=== PATIENT | male | born 1960 | race Caucasian/White ===

== ENCOUNTER → 2017-12-27 10:58 | Outpatient (CLI) | payer MEDICAID, SELFPAY ==
[2017-12-30 16:03] LABS: Amphetamine/Metha Screen,Urine Negative ng/mL (<1000); Barbiturates Screen,Urine Negative ng/mL (<200); Benzodiazepines Screen,Urine Negative ng/mL (200); Cannabinoid Screen,Urine Positive ng/mL (<50); Cocaine Screen,Urine Negative ng/g (<300); Methadone Screen,Urine Negative ng/mL (<300); Opiate Screen,Urine Negative ng/mL (<300); Phencyclidine Screen,Urine Negative ng/mL (<25)
== END ==
PROVIDERS: Visit Provider Emergency Medicine
DX: M54.9 Dorsalgia, unspecified (principal); Z79.899 Other long term (current) drug therapy
CPT/HCPCS: 80305

== ENCOUNTER → 2017-12-30 11:16 | Outpatient (REF) | payer MEDICAID, SELFPAY | LOC: LAB 11:16 | PROVIDERS: Visit Provider Emergency Medicine ==

== ENCOUNTER → 2018-02-21 10:20 | Outpatient (REF) | payer MEDICAID, SELFPAY ==
[2018-02-21 14:08] LABS: Basophils # 0.1 K/mm3 (0-0.2); Basophils % 0.6 % (0.1-2.0); Eosinophils # 0.5 K/mm3 (0.0-0.4); Eosinophils % 4.6 % (0.1-12.0); Hematocrit 46.6 % (42.0-52.0); Hemoglobin 15.2 g/dL (14.1-18.0); Lymphocytes # 2.9 K/mm3 (0.7-4.5); Lymphocytes % 27.9 K/mm3 (10-50); Mean Corpuscular HGB Conc 32.7 g/dL (31.8-35.4); Mean Corpuscular Hemoglobin 29.5 pg (27.0-31.2); Mean Corpuscular Volume 90.4 fl (80-94); Mean Platelet Volume 8.5 fl (7.4-10.4); Monocytes # 0.4 K/mm3 (0.1-1.0); Monocytes % 4.1 % (1.7-9.3); Neutrophils # 6.6 K/mm3 (1.8-7.8); Neutrophils % 62.8 % (37.0-80.0); Platelet Count 322 K/mm3 (142-424); Red Blood Count 5.16 M/mm3 (4.60-6.20); Red Cell Distribution Width 13.4 % (11.5-17.5); White Blood Count 10.5 K/mm3 (4.8-10.8)
[2018-02-21 14:32] LABS: Amphetamine/Metha Screen,Urine Negative ng/mL (<1000); Barbiturates Screen,Urine Negative ng/mL (<200); Benzodiazepines Screen,Urine Negative ng/mL (200); Cannabinoid Screen,Urine Positive ng/mL (<50); Cocaine Screen,Urine Negative ng/g (<300); Methadone Screen,Urine Negative ng/mL (<300); Opiate Screen,Urine Positive ng/mL (<300); Phencyclidine Screen,Urine Negative ng/mL (<25)
[2018-02-21 15:04] LABS: Alanine Aminotransferase 54 U/L (12-78); Albumin Level 4.2 gm/dL (3.4-5.0); Albumin/Globulin Ratio 1.2 (1.1-1.8); Alkaline Phosphatase 140 U/L (46-116); Anion Gap 16.3 mEq/L (5-15); Aspartate Amino Transferase 29 U/L (15-37); Bilirubin,Total 0.2 mg/dL (0.2-1.0); Blood Urea Nitrogen 15 mg/dL (7-18); Calcium 9.6 mg/dL (8.5-10.1); Carbon Dioxide 26 mmol/L (21.0-32.0); Chloride 100 mmol/L (98-107); Cholesterol 152 mg/dL (140-200); Creatinine,Serum 0.98 mg/dL (0.70-1.30); Estimated Glomerular Filt Rate 79 ml/min (>60); GFR (African American) 96 ML/MIN (>60); Globulin 3.4 gm/dl (1.3-3.2); Glucose 178 mg/dL (74-106); HDL Cholesterol 38 mg/dL (27-67); LDL Cholesterol 75 mg/dL (0-130); Potassium 4.3 mmoL/L (3.5-5.1); Sodium 138 mmol/L (136-145); T4 (Thyroxine) 7.4 ug/dl (4.7-13.3); Thyroid Stimulating Hormone 0.87 uIU/ml (0.358-3.740); Total Protein,Serum 7.6 gm/dL (6.4-8.2); Triglycerides 197 mg/dL (30-200); VLDL Cholesterol 39 mg/dL (0-40)
[2018-02-23 18:49] LABS: PSA, Free 0.32 ng/mL; Prostate Specific Ag 0.9 ng/mL (0.0-4.0); Vitamin D 25 Hydroxy 31.6 ng/mL (30.0-100.0)
== END ==
LOC: LAB 10:20
PROVIDERS: Visit Provider Emergency Medicine
DX: E78.5 Hyperlipidemia, unspecified (principal); I10 Essential (primary) hypertension; Z79.899 Other long term (current) drug therapy
CPT/HCPCS: 80053; 80061; 80305; 82652; 84153; 84154; 84436; 84443; 85025

== ENCOUNTER → 2018-02-24 13:28 | Outpatient (CLI) | payer MEDICAID, SELFPAY | PROVIDERS: Visit Provider Emergency Medicine | DX: R73.09 Other abnormal glucose (principal) ==

== ENCOUNTER → 2018-02-25 10:37 | Outpatient (REF) | payer MEDICAID, SELFPAY ==
[2018-02-25 15:21] LABS: Hemoglobin A1C 5.9 % (0.0-7.0)
== END ==
LOC: LAB 10:37
PROVIDERS: Visit Provider Emergency Medicine
DX: R73.09 Other abnormal glucose (principal)
CPT/HCPCS: 83036

== ENCOUNTER → 2018-05-16 10:20 | Outpatient (REF) | payer MEDICAID, SELFPAY ==
[2018-05-16 14:23] LABS: Amphetamine/Metha Screen,Urine Negative ng/mL (<1000); Barbiturates Screen,Urine Negative ng/mL (<200); Benzodiazepines Screen,Urine Negative ng/mL (<200); Cannabinoid Screen,Urine Positive ng/mL (<50); Cocaine Screen,Urine Negative ng/mL (<300); Methadone Screen,Urine Negative ng/mL (<300); Opiate Screen,Urine Positive ng/mL (<300); Phencyclidine Screen,Urine Negative ng/mL (<25)
== END ==
LOC: LAB 10:20
PROVIDERS: Visit Provider Emergency Medicine
DX: Z79.899 Other long term (current) drug therapy (principal)
CPT/HCPCS: 80305

== ENCOUNTER → 2018-06-13 10:04 | Outpatient (REF) | payer MEDICAID, SELFPAY ==
[2018-06-13 14:05] LABS: Amphetamine/Metha Screen,Urine Negative ng/mL (<1000); Barbiturates Screen,Urine Negative ng/mL (<200); Benzodiazepines Screen,Urine Negative ng/mL (<200); Cannabinoid Screen,Urine Positive ng/mL (<50); Cocaine Screen,Urine Negative ng/mL (<300); Methadone Screen,Urine Negative ng/mL (<300); Opiate Screen,Urine Positive ng/mL (<300); Phencyclidine Screen,Urine Negative ng/mL (<25)
== END ==
LOC: LAB 10:04
PROVIDERS: Visit Provider Emergency Medicine
DX: M54.5 Low back pain (principal)
CPT/HCPCS: 80305

== ENCOUNTER → 2018-07-11 08:12 | Outpatient (REF) | payer MEDICAID, SELFPAY ==
[2018-07-11 18:53] LABS: Amphetamine/Metha Screen,Urine Negative ng/mL (<1000); Barbiturates Screen,Urine Negative ng/mL (<200); Benzodiazepines Screen,Urine Negative ng/mL (<200); Cannabinoid Screen,Urine Positive ng/mL (<50); Cocaine Screen,Urine Negative ng/mL (<300); Methadone Screen,Urine Negative ng/mL (<300); Opiate Screen,Urine Positive ng/mL (<300); Phencyclidine Screen,Urine Negative ng/mL (<25)
== END ==
LOC: LAB 08:12
PROVIDERS: Visit Provider Emergency Medicine
DX: Z79.899 Other long term (current) drug therapy (principal)
CPT/HCPCS: 80305

== ENCOUNTER → 2018-08-08 09:24 | Outpatient (REF) | payer MEDICAID, SELFPAY ==
[2018-08-08 18:32] LABS: Amphetamine/Metha Screen,Urine Negative ng/mL (<1000); Barbiturates Screen,Urine Negative ng/mL (<200); Benzodiazepines Screen,Urine Negative ng/mL (<200); Cannabinoid Screen,Urine Positive ng/mL (<50); Cocaine Screen,Urine Negative ng/mL (<300); Methadone Screen,Urine Negative ng/mL (<300); Opiate Screen,Urine Positive ng/mL (<300); Phencyclidine Screen,Urine Negative ng/mL (<25)
== END ==
LOC: LAB 09:24
PROVIDERS: Visit Provider Emergency Medicine
DX: Z79.899 Other long term (current) drug therapy (principal)
CPT/HCPCS: 80305

== ENCOUNTER → 2018-09-08 14:00 | Outpatient (CLI) | payer MEDICAID, SELFPAY ==
[2018-09-08 15:10] LABS: Amphetamine/Metha Screen,Urine Negative ng/mL (<1000); Barbiturates Screen,Urine Negative ng/mL (<200); Benzodiazepines Screen,Urine Negative ng/mL (<200); Cannabinoid Screen,Urine Positive ng/mL (<50); Cocaine Screen,Urine Negative ng/mL (<300); Methadone Screen,Urine Negative ng/mL (<300); Opiate Screen,Urine Positive ng/mL (<300); Phencyclidine Screen,Urine Negative ng/mL (<25)
== END ==
PROVIDERS: PCP Emergency Medicine; Visit Provider Emergency Medicine
DX: Z79.899 Other long term (current) drug therapy (principal)
CPT/HCPCS: 80305

== ENCOUNTER → 2018-10-07 13:25 | Outpatient (CLI) | payer MEDICAID, SELFPAY ==
[2018-10-07 14:31] LABS: Amphetamine/Metha Screen,Urine Negative ng/mL (<1000); Barbiturates Screen,Urine Negative ng/mL (<200); Benzodiazepines Screen,Urine Negative ng/mL (<200); Cannabinoid Screen,Urine Positive ng/mL (<50); Cocaine Screen,Urine Negative ng/mL (<300); Methadone Screen,Urine Negative ng/mL (<300); Opiate Screen,Urine Positive ng/mL (<300); Phencyclidine Screen,Urine Negative ng/mL (<25)
== END ==
PROVIDERS: Visit Provider Emergency Medicine
DX: Z79.899 Other long term (current) drug therapy (principal)
CPT/HCPCS: 80305

== ENCOUNTER → 2018-11-07 14:22 | Outpatient (CLI) | payer MEDICAID, SELFPAY ==
[2018-11-07 15:02] LABS: Amphetamine/Metha Screen,Urine Negative ng/mL (<1000); Barbiturates Screen,Urine Negative ng/mL (<200); Benzodiazepines Screen,Urine Negative ng/mL (<200); Cannabinoid Screen,Urine Positive ng/mL (<50); Cocaine Screen,Urine Negative ng/mL (<300); Methadone Screen,Urine Negative ng/mL (<300); Opiate Screen,Urine Positive ng/mL (<300); Phencyclidine Screen,Urine Negative ng/mL (<25)
== END ==
PROVIDERS: Visit Provider Emergency Medicine
DX: Z79.899 Other long term (current) drug therapy (principal)
CPT/HCPCS: 80305

== ENCOUNTER → 2019-01-02 16:14 | Outpatient (CLI) | payer MEDICAID, SELFPAY ==
[2019-01-02 17:57] LABS: Amphetamine/Metha Screen,Urine Negative ng/mL (<1000); Barbiturates Screen,Urine Negative ng/mL (<200); Benzodiazepines Screen,Urine Negative ng/mL (<200); Cannabinoid Screen,Urine Positive ng/mL (<50); Cocaine Screen,Urine Negative ng/mL (<300); Methadone Screen,Urine Negative ng/mL (<300); Opiate Screen,Urine Positive ng/mL (<300); Phencyclidine Screen,Urine Negative ng/mL (<25)
== END ==
PROVIDERS: Visit Provider Emergency Medicine
DX: Z79.899 Other long term (current) drug therapy (principal)
CPT/HCPCS: 80305

== ENCOUNTER → 2019-03-02 14:11 | Outpatient (CLI) | payer MEDICAID, SELFPAY ==
[2019-03-02 15:52] LABS: Amphetamine/Metha Screen,Urine Negative ng/mL (<1000); Barbiturates Screen,Urine Negative ng/mL (<200); Benzodiazepines Screen,Urine Negative ng/mL (<200); Cannabinoid Screen,Urine Positive ng/mL (<50); Cocaine Screen,Urine Negative ng/mL (<300); Methadone Screen,Urine Negative ng/mL (<300); Opiate Screen,Urine Positive ng/mL (<300); Phencyclidine Screen,Urine Negative ng/mL (<25)
== END ==
PROVIDERS: Visit Provider Emergency Medicine
DX: Z79.899 Other long term (current) drug therapy (principal)
CPT/HCPCS: 80305

== ENCOUNTER → 2019-04-29 13:43 | Outpatient (CLI) | payer MEDICAID, SELFPAY ==
[2019-04-29 14:53] LABS: Amphetamine/Metha Screen,Urine Negative ng/mL (<1000); Barbiturates Screen,Urine Negative ng/mL (<200); Benzodiazepines Screen,Urine Negative ng/mL (<200); Cannabinoid Screen,Urine Positive ng/mL (<50); Cocaine Screen,Urine Negative ng/mL (<300); Methadone Screen,Urine Negative ng/mL (<300); Opiate Screen,Urine Positive ng/mL (<300); Phencyclidine Screen,Urine Negative ng/mL (<25)
== END ==
PROVIDERS: Visit Provider Emergency Medicine
DX: Z79.899 Other long term (current) drug therapy (principal)
CPT/HCPCS: 80305

== ENCOUNTER → 2019-06-24 13:59 | Outpatient (CLI) | payer MEDICAID, SELFPAY ==
[2019-06-24 16:49] LABS: Amphetamine/Metha Screen,Urine Negative ng/mL (<1000); Barbiturates Screen,Urine Negative ng/mL (<200); Benzodiazepines Screen,Urine Negative ng/mL (<200); Cannabinoid Screen,Urine Negative ng/mL (<50); Cocaine Screen,Urine Negative ng/mL (<300); Methadone Screen,Urine Negative ng/mL (<300); Opiate Screen,Urine Positive ng/mL (<300); Phencyclidine Screen,Urine Negative ng/mL (<25)
== END ==
PROVIDERS: Visit Provider Emergency Medicine
DX: Z79.891 Long term (current) use of opiate analgesic (principal)
CPT/HCPCS: 80305

== ENCOUNTER → 2019-08-21 13:27 | Outpatient (CLI) | payer MEDICAID, SELFPAY ==
[2019-08-21 15:10] LABS: Amphetamine/Metha Screen,Urine Negative ng/mL (<1000); Barbiturates Screen,Urine Negative ng/mL (<200); Benzodiazepines Screen,Urine Positive ng/mL (<200); Cannabinoid Screen,Urine Positive ng/mL (<50); Cocaine Screen,Urine Negative ng/mL (<300); Methadone Screen,Urine Negative ng/mL (<300); Opiate Screen,Urine Positive ng/mL (<300); Phencyclidine Screen,Urine Negative ng/mL (<25)
[2019-08-29 04:07] LABS: Alprazolam Negative (Cutoff=100); Benzodiazepines Negative ng/mL (Cutoff=100); Clonazepam Negative (Cutoff=100); Flurazepam Negative (Cutoff=100); Lorazepam Negative (Cutoff=100); Midazolam Negative (Cutoff=100); Temazepam Negative (Cutoff=100); Triazolam Negative (Cutoff=100)
== END ==
PROVIDERS: Visit Provider Emergency Medicine
DX: Z79.899 Other long term (current) drug therapy (principal)
CPT/HCPCS: 80305; 80346

== ENCOUNTER → 2019-10-19 14:31 | Outpatient (CLI) | payer MEDICAID, SELFPAY ==
[2019-10-19 16:22] LABS: Amphetamine/Metha Screen,Urine Negative ng/mL (<1000); Barbiturates Screen,Urine Negative ng/mL (<200); Benzodiazepines Screen,Urine Negative ng/mL (<200); Cannabinoid Screen,Urine Positive ng/mL (<50); Cocaine Screen,Urine Negative ng/mL (<300); Methadone Screen,Urine Negative ng/mL (<300); Opiate Screen,Urine Positive ng/mL (<300); Phencyclidine Screen,Urine Negative ng/mL (<25)
== END ==
PROVIDERS: Visit Provider Emergency Medicine
DX: M54.9 Dorsalgia, unspecified (principal)
CPT/HCPCS: 80305

== ENCOUNTER 2021-10-28 05:40 | Emergency (ER) | payer MEDICAID, SELFPAY ==
[2021-10-28] VITALS (8 sets, daily range): BP systolic 116–162; BP diastolic 60–100; PULSE 74–101; RESP 16–18; TEMP 36.6–36.8; O2SAT 94–99; BMI 35.4
--- NOTE | 2021-10-28 05:45 | CT_ITS ---
PROCEDURE INFORMATION: Exam: CT Abdomen With Contrast Exam date and time: 10/28/2021 5:45 AM Age: 61 years old Clinical indication: Patient HX: C/O low abdominal pain; Additional info: Abd pain TECHNIQUE: Imaging protocol: Computed tomography images of the abdomen with intravenous contrast. Radiation optimization: All CT scans at this facility use at least one of these dose optimization techniques: automated exposure control; mA and/or kV adjustment per patient size (includes targeted exams where dose is matched to clinical indication); or iterative reconstruction. Contrast material: ISOVUE; Contrast volume: 75 ml; Contrast route: IV; COMPARISON: ABDPELW/O CT ABD PELVIS W/O CONTRAST 03/21/2015 9:29 PM FINDINGS: Liver: There is fatty infiltration of the liver. Gallbladder and bile ducts: The gallbladder is normal appearance, without evidence of gallbladder wall thickening or pericholecystic fluid. Pancreas: The pancreas is normal in appearance, without evidence of mass, cyst, peripancreatic inflammatory change, or pancreatic duct dilatation. Spleen: The spleen is normal in appearance. Adrenals: There is a fatty mass in the right adrenal gland measuring approximately 2.2 cm image 29 series 8. Kidneys and ureters: Normal. No hydronephrosis. Stomach and bowel: The stomach is normal in appearance, without evidence of mass or wall thickening. The small bowel is normal in appearance, without evidence of wall thickening, perienteric inflammatory change, or small bowel obstruction. The terminal ileum and cecum are within normal limits. There are multiple diverticuli in the distal descending colon and in the sigmoid colon. Intraperitoneal space: Unremarkable. No free air. No significant fluid collection. Lymph nodes: Unremarkable. No enlarged lymph nodes. Vasculature: Unremarkable. No abdominal aortic aneurysm. Bladder: The urinary bladder is nondistended. Matias catheter is in place. Bones/joints: Unremarkable. No acute fracture. No dislocation. Soft tissues: Unremarkable. IMPRESSION: 1. Hepatic steatosis. 2. Probable right adrenal adenoma measuring 2.2 cm. 3. Diverticulosis, without evidence of acute diverticulitis.
[2021-10-28 06:18] LABS: Microscopic, Urine URINE MICROSCOPIC (MICROSCOPIC)
[2021-10-28 06:20] LABS: Appearance,Urine CLEAR (Clear); Basophils # 0.2 K/mm3 (0-0.2); Basophils % 1.2 % (0.1-2.0); Bilirubin,Urine Negative (Negative); Blood, Urine TRACE-L (Negative); Color,Urine YELLOW (Yellow); Eosinophils # 0.2 K/mm3 (0.0-0.4); Eosinophils % 1.2 % (0.1-12.0); Glucose,Urine (UA) Negative (Negative); Hematocrit 48.2 % (42.0-52.0); Hemoglobin 15.6 g/dL (14.1-18.0); Ketones,Urine Negative (Negative); Leukocyte Esterase,Urine Negative (Negative); Lymphocytes # 3.3 K/mm3 (0.7-4.5); Lymphocytes % 23.9 % (10-50); Mean Corpuscular HGB Conc 32.3 g/dL (31.8-35.4); Mean Corpuscular Hemoglobin 29.2 pg (27.0-31.2); Mean Corpuscular Volume 90.4 fl (80-94); Mean Platelet Volume 8.5 fl (7.4-10.4); Monocytes # 0.5 K/mm3 (0.1-1.0); Monocytes % 3.8 % (1.7-9.3); Neutrophils # 9.5 K/mm3 (1.8-7.8); Neutrophils % 69.8 % (37.0-80.0); Nitrate,Urine Negative (Negative); Platelet Count 391 K/mm3 (142-424); Protein,Urine 1+ (Negative); Red Blood Count 5.34 M/mm3 (4.60-6.20); Red Cell Distribution Width 13.9 % (11.5-17.5); Urobilinogen,Urine 0.2 EU/dl (0.2); White Blood Count 13.6 K/mm3 (4.8-10.8)
[2021-10-28 06:27] LABS: Chloride 99 mmol/L (98-107); Potassium 3.7 mmoL/L (3.5-5.1); Sodium 138 mmol/L (136-145)
--- NOTE | 2021-10-28 06:28 | HMH.EDNVD ---
ED Disposition Condition on Discharge: Good - Critical Care Critical Care Time: No <DeanaCorbin Rodriguez - Last Filed: 10/28/21 08:07> Condition on Discharge: Good <RolaRoosevelt - Last Filed: 10/28/21 08:32> Clinical Impression: Acute urinary retention Disposition: Home, Self-Care Instructions: DI for Urinary Retention in Men Additional Instructions: Magnesium citrate followed by [facility] for 5 days. Follow-up with Dr. Pollack, urology, call Saturday to make appointment. Return to the emergency department if unable to urinate. Prescriptions: polyethylene glycoL 3350 [Miralax 17gm Packet] 17 gm PO DAILY #5 packet Transmission Status: Pending to [facility] Referrals: Provider,MD Maurice [Primary Care Provider] - Gerardo Pollack MD [Staff Physician] - Attestation: On 10/28/21, the high probability of a clinically significant, sudden or life threatening deterioration of the following system(s) required my full and direct attention, intervention and personal management. The time I documented below is in addition to time spent performing reported procedures but includes the following listed in this critical care notation. Medical Decision Making - Medical Records Medical records reviewed: Yes: I reviewed the patient's medical records. - Minor Inquiry Pt receiving controlled substance: No - Lab Data Lab results reviewed: Yes: I reviewed the patient's lab results. Result diagrams: 10/28/21 05:55 10/28/21 05:55 <Corbin Leblanc - Last Filed: 10/28/21 08:07> - Lab Data Result diagrams: 10/28/21 05:55 10/28/21 05:55 - CT Data CT Scan: Abdomen, Pelvis Time Received: 08:[address] Reviewed: Yes: I have viewed the radiologist's interpretation <RolaRoosevelt - Last Filed: 10/28/21 08:32> Vital Signs: 10/28/21 05:40 10/28/21 05:56 10/28/21 06:01 Temperature 97.8 F Temperature Source Oral Pulse Rate 91 H 93 H Pulse Rate [Right] 74 Respiratory Rate 18 Blood Pressure 146/86 H 149/86 H Blood Pressure [Right Arm] 162/100 H Blood Pressure Mean 106 100 Blood Pressure Mean [Right Arm] 120 Blood Pressure Position 02 Sat by Pulse Oximetry 96 99 94 L Oxygen Delivery Method 10/28/21 06:30 10/28/21 07:09 10/28/21 07:30 Temperature Temperature Source Pulse Rate 93 H 94 H 87 Pulse Rate [Right] Respiratory Rate 16 Blood Pressure 116/60 144/90 H 153/91 H Blood Pressure [Right Arm] Blood Pressure Mean 80 105 107 Blood Pressure Mean [Right Arm] Blood Pressure Position Sitting 02 Sat by Pulse Oximetry 95 95 95 Oxygen Delivery Method Room Air 10/28/21 08:01 Temperature Temperature Source Pulse Rate 98 H Pulse Rate [Right] Respiratory Rate Blood Pressure 140/77 Blood Pressure [Right Arm] Blood Pressure Mean 98 Blood Pressure Mean [Right Arm] Blood Pressure Position 02 Sat by Pulse Oximetry 95 Oxygen Delivery Method - Lab Data Lab Results 10/28/21 05:55: Urine Color Yellow, Urine Appearance Clear, Urine pH 6.0, Ur Specific [place] 1.020, Urine Protein 1+, Urine Glucose (UA) Negative, Urine Ketones Negative, Urine Blood Trace-l, Urine Nitrate Negative, Urine Bilirubin Negative, Urine Urobilinogen 0.2, Ur Leukocyte Esterase Negative, Urine RBC Occasional, Urine WBC None, Ur Squamous Epith Cells Occasional, Urine Bacteria Trace 10/28/21 05:55: WBC 13.6 H, RBC 5.34, Hgb 15.6, Hct 48.2, MCV 90.4, MCH 29.2, MCHC 32.3, RDW 13.9, Plt Count 391, MPV 8.5, Neut % (Auto) 69.8, Lymph % (Auto) 23.9, Roosevelt % (Auto) 3.8, Eos % (Auto) 1.2, Baso % (Auto) 1.2, Neut # (Auto) 9.5 H, Lymph # (Auto) 3.3, Roosevelt # (Auto) 0.5, Eos # (Auto) 0.2, Baso # (Auto) 0.2, ESR 8 10/28/21 05:55: Sodium 138, Potassium 3.7, Chloride 99, Carbon Dioxide 23, Anion Gap 19.7 H, BUN 13, Creatinine 0.90, Estimated Creat Clear 134, Estimated GFR 86, Est GFR ( Amer) 104, Glucose 131 H, Calcium 9.5, Total Bilirubin 0.4, AST 57, ALT 72, Alkaline Phosphatase 157 H, C-Reactive Protein 11
[2021-10-28 06:29] LABS: Amylase 76 U/L (30-110); Lipase 110 U/L (23-300)
[2021-10-28 06:30] LABS: Alanine Aminotransferase 72 U/L (12-78); Albumin Level 4.8 g/dl (3.5-5.0); Albumin/Globulin Ratio 1.6 (1.1-1.8); Alkaline Phosphatase 157 U/L (38-126); Anion Gap 19.7 mEq/L (5-15); Aspartate Amino Transferase 57 U/L (17-59); Bilirubin,Total 0.4 mg/dl (0.2-1.3); Blood Urea Nitrogen 13 mg/dl (9-20); Calcium 9.5 mg/dl (8.4-10.2); Carbon Dioxide 23 mmol/L (22.0-30.0); Creatinine Clearance Estimated 134 mL/min (50-200); Estimated Glomerular Filt Rate 86 ml/min (>60); GFR (African American) 104 ML/MIN (>60); Glucose 131 mg/dl (74-100); Total Protein,Serum 7.8 g/dl (6.3-8.2)
[2021-10-28 06:36] LABS: C-Reactive Protein 11.7 mg/L (0-4)
[2021-10-28 06:40] LABS: Bacteria,Urine Trace /lpf; RBC,Urine Occasional #/hpf (0-3); Squamous Epithelial Cell,Urine Occasional #/hpf (0-5)
[2021-10-28 06:50] LABS: Erythrocyte Sedimentation Rate 8 mm/hr (0-20)
--- NOTE | 2021-10-28 07:36 | PC.NURSE ---
Pt is resting comfortably in bed.
[2021-10-28 07:54] LABS: Procalcitonin 0.061 ng/mL (0.0-2.0)
== END 2021-10-28 08:42 | disposition home or self-care (01) ==
PROVIDERS: Emergency Provider Emergency Medicine
DX: R10.30 Lower abdominal pain, unspecified (principal); I25.10 Atherosclerotic heart disease of native coronary artery without angina pectoris; I10 Essential (primary) hypertension; E78.5 Hyperlipidemia, unspecified; F17.210 Nicotine dependence, cigarettes, uncomplicated
CPT/HCPCS: 74160; 80053; 81001; 82150; 83690; 84145; 85025; 85651; 86140; 96365; 96375; 99283; J2405; Q9967

== ENCOUNTER → 2022-12-03 09:42 | Outpatient (POV) | payer MEDICAID, SELFPAY ==
[2022-12-03 10:14] VITALS: BP 157/93; PULSE 100; RESP 18; O2SAT 98; BMI 36.9
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
== END ==
PROVIDERS: PCP Emergency Medicine; Visit Provider Nurse Practitioner Family
DX: M51.16 Intervertebral disc disorders with radiculopathy, lumbar region (principal); M24.28 Disorder of ligament, vertebrae; M47.26 Other spondylosis with radiculopathy, lumbar region; M50.30 Other cervical disc degeneration, unspecified cervical region
CPT/HCPCS: 99202; G0463

== ENCOUNTER 2023-11-10 06:43 | Inpatient (IN) | payer MEDICAID, SELFPAY ==
[2023-11-10] VITALS (43 sets, daily range): BP systolic 81–140; BP diastolic 42–87; PULSE 62–114; RESP 15–36; TEMP 35.8–37.1; O2SAT 88–100; BMI 34.2; BMI 36.0
--- NOTE | 2023-11-10 06:44 | ECG_ITS ---
APPROVED REPORT Exam: Resting ECG HR:112 bpm ECG Measurements Heart Rate 112 AXES DE 178 P 55 QRSd 145 QRS 71 QT 351 T 202 QTc 417 Conclusion SINUS TACHYCARDIA WITH FREQUENT VENTRICULAR PREMATURE COMPLEXES INTRAVENTRICULAR CONDUCTION DELAY [130+ ms QRS DURATION] ABNORMAL ECG UNCONFIRMED REPORT Electronically signed by : Jeffery Benoit MD 11/11/2023 17:50:08
--- NOTE | 2023-11-10 06:47 | XR_ITS ---
PROCEDURE INFORMATION: Exam: XR Chest Exam date and time: 11/10/2023 6:48 AM Age: 63 years old Clinical indication: Other: Resp distress TECHNIQUE: Imaging protocol: Radiologic exam of the chest. Views: 1 view. COMPARISON: CT ABDOMEN W CON 10/28/2021 6:45 AM FINDINGS: Lungs: Pulmonary vessels are prominent. No focal consolidation. Pleural spaces: Unremarkable. No pleural effusion. No pneumothorax. Heart/Mediastinum: The heart is mildly enlarged. Vasculature: The aorta demonstrates mild atherosclerotic calcification. Bones/joints: Unremarkable. Other findings: Cardioversion paddle projects over the right hilum. IMPRESSION: Cardiomegaly with pulmonary vascular congestion.
--- NOTE | 2023-11-10 06:49 | ECG_ITS ---
APPROVED REPORT Exam: Resting ECG HR:112 bpm ECG Measurements Heart Rate 112 AXES MS 156 P 52 QRSd 145 QRS 64 QT 354 T 210 QTc 420 Conclusion SINUS TACHYCARDIA WITH OCCASIONAL VENTRICULAR PREMATURE COMPLEXES INTRAVENTRICULAR CONDUCTION DELAY [130+ ms QRS DURATION] LATERAL MYOCARDIAL INFARCTION , PROBABLY RECENT [40+ ms Q WAVE AND/OR ST/T ABNORMALITY IN I/aVL/V5/V6] ACUTE WA UNCONFIRMED REPORT Electronically signed by : Jeffery Benoit MD 11/11/2023 17:50:01
--- NOTE | 2023-11-10 06:56 | ED_ITS ---
Discharge Plan Disposition Patient Disposition: Admitted Prescriptions Prescriptions: No Action metoprolol succinate 50 mg tablet extended release 24 hr 50 mg PO DAILY Qty: 90 0RF atorvastatin 80 MG tablet See Rx Instructions .Route .COMPLEX Rx Instructions: TAKE 1 TABLET BY MOUTH ONCE DAILY FOR CHOLESTEROL omeprazole 40 MG capsule,delayed release(DR/EC) 40 mg PO DAILY lisinopril 10 MG tablet 40 mg PO DAILY gabapentin 300 MG capsule 400 mg PO TID polyethylene glycol 3350 17 GM powder in packet 17 gm PO DAILY Clinical Impressions Clinical Impression: Acute ST elevation myocardial infarction (STEMI) of posterior wall, Acute hypoxemic respiratory failure Discharge ED Provider: Aleena Stokes HPI General Chief Complaint: Chest Pain Stated Complaint: Chest pain Time Seen by Provider: 11/10/23 06:43 History of Present Illness HPI narrative: This patient is a 63-year-old male with a history of CAD with prior LA, hypertension, hyperlipidemia, obesity, and chronic tobacco use presenting to the emergency department for evaluation with concern for shortness of breath. He reports that he woke up acutely at 3:00 in the morning feeling extremely short of breath. He somehow ended up on the floor, fell back asleep, and woke up approximately 6:00 AM to people banging on his door, because EMS had been dispatched due to a call out for a lift assist. Patient was noted to be hypoxic on their assessment with significant ST depressions in the anteroseptal leads. That he had an oxygen saturation in the low 80s, so they placed him on 4 L nasal cannula. He was given 324 mg of aspirin prior to arrival. Patient states that he takes blood pressure medicine and aspirin daily, but he denies use of any anticoagulation otherwise. He currently has no complaints but continues to require oxygen. He notes that he is scheduled for heart cath on Saturday. Related Data Home Medications Medication Instructions Recorded Confirmed atorvastatin 80 mg tablet See Rx Instructions .Route 10/28/21 12/03/22 .COMPLEX High cholesterol gabapentin 300 mg capsule 400 mg PO TID Pain 10/28/21 12/03/22 lisinopril 10 mg tablet 40 mg PO DAILY htn 10/28/21 12/03/22 omeprazole 40 mg capsule,delayed 40 mg PO DAILY GERD 10/28/21 12/03/22 release polyethylene glycol 3350 17 gram 17 gm PO DAILY BOWELS 12/03/22 12/03/22 oral powder packet Previous Rx's Medication Instructions Recorded metoprolol succinate 50 mg 50 mg PO DAILY blood pressure #90 03/22/20 tablet,extended release 24 hr tabs Allergies Allergy/AdvReac Type Severity Reaction Status Date / Time No Known Allergies Allergy Verified 04/18/20 11:24 [facility] Disclaimer: The information contained in this section may have been updated after the patient was seen, as this information can be updated by other users. Medical History CAD (coronary artery disease) Diverticulitis HLD (hyperlipidemia) HTN (hypertension) Myocardial infarct Neck pain Surgical History H/O right knee surgery History of hip surgery Hx of colonoscopy Social History Smoking Status: Former smoker tobacco type: cigarettes packs per day: 2 alcohol intake: current substance use type: denies use current occupational status: employed Travel in the last 8 weeks: None housing: apartment caffeine: Yes ROS Obtained: Yes All systems reviewed & no additional complaints except as documented Physical Exam General General appearance: alert, in no apparent distress and obese Head Head exam: atraumatic and normocephalic Eye Eye exam: Present normal appearance, PERRL and EOMI ENT ENT exam: Present normal exam, normal oropharynx, mucous membranes moist and normal external ear exam Neck Neck exam: Present normal inspection, full ROM and trachea midline; Absent tenderness Chest Chest inspection: Present normal inspection and symmetric chest wall rise; Absent tenderness Respiratory Respiratory exam: Present normal lung sounds bilaterally; Absent respiratory distress, wheezes, stridor or accessory muscle use Cardiovascular Cardiovascular exam: Present normal rhythm and tachycardia Abdominal Exam Abdominal exam: Present soft; Absent distention, tenderness or guarding Extremities Exam Extremities exam: Present normal inspection, full ROM and normal capillary refill; Absent tenderness or edema Back Exam Back exam: Present normal inspection and full ROM; Absent tenderness Neurological Exam Neurological exam: Present alert, oriented X3, CN II-XII intact and normal gait; Absent motor sensory deficit Psychiatric Psychiatric exam: Present normal affect and normal mood Skin Skin exam: Present warm and dry HEART Score HEART Score HEART Score assessment performed?: Yes History (anamnesis): Highly suspicious ECG: Significant ST-deviation Age: 45-65 years Risk factors: Atherosclerosis history Troponin: > 3x normal limit HEART Score: 9 Critical Care Critical Care Time Critical Care Time: Yes Attestation: On , the high probability of a clinically significant, sudden or life thr eatening deterioration of the following system(s) (cardiovascular, respiratory) required my full and direct attention, intervention and personal management. The time I documented below is in addition to time spent performing reported procedures but includes the following listed in this critical care notation. Total Time Total Critical Care Time: 30 Medical Decision Making Medical Records Medical records reviewed: Yes I reviewed the patient's medical records. Minor Inquiry Pt receiving controlled substance: No Vital Signs Vital Signs: 11/10/23 06:55 11/10/23 06:59 11/10/23 07:02 Temperature 98.3 F Temperature Source Oral Pulse Rate 110 H Pulse Rate [Left Radial] 114 H Respiratory Rate 22 Blood Pressure [Right Arm] 102/56 L Blood Pressure Mean [Right Arm] 71 02 Sat by Pulse Oximetry 88 L 90 L Oxygen Delivery Method Room Air Nasal Cannula Oxygen Flow Rate (LPM) 2 Lab Data Labs: Lab Results 11/10/23 06:50: WBC 17.8 H, RBC 5.29, Hgb 15.3, Hct 47.9, MCV 90.6, MCH 28.9, MCHC 31.9, RDW 14.6, Plt Count 345, MPV 8.7, Neut % (Auto) 82.8 H, Lymph % (Auto) 11.1, Rowan % (Auto) 4.1, Eos % (Auto) 1.7, Baso % (Auto) 0.4, Neut # (Auto) 14.7 H, Lymph # (Auto) 2.0, Rowan # (Auto) 0.7, Eos # (Auto) 0.3, Baso # (Auto) 0.1, PT 10.7, INR 0.99, APTT 27.1, D-Dimer 0.57 H, Sodium 137, Potassium 4.1, Chloride 103, Carbon Dioxide 26, Anion Gap 12.1, BUN 27 H, Creatinine 1.30 H, Estimated Creat Clear 88, Estimated GFR 56 L, Est GFR ( Amer) 68, Glucose 127 H, Calcium 9.2, Total Bilirubin 0.4, AST 38, ALT 36, Alkaline Phosphatase 129 H, Troponin I 0.11 H, Total Protein 7.9, Albumin 4.5, Globulin 3.4 H, Albumin/Globulin Ratio 1.3 11/10/23 06:50 11/10/23 06:50 Response Orders (Tests/Meds): ED MEDICATIONS Generic Name Dose Route Start Last Admin Trade Name Freq PRN Reason Stop Dose Admin Diphenhydramine HCl 50 mg 11/10/23 07:12 Diphenhydramine 50mg/Ml Vial IV 11/10/23 07:13 ONCE ONE Fentanyl Citrate 50 mcg 11/10/23 07:12 Fentanyl 100mcg/2ml Vial IV 11/10/23 19:12 Q3MINP PRN Moderate to Severe Pain (4-10) Fentanyl Citrate 25 mcg 11/10/23 07:12 Fentanyl 250mcg/5ml Vial IV 11/10/23 19:12 Q3MINP PRN Moderate to Severe Pain (4-10) Fentanyl Citrate 50 mcg 11/10/23 07:12 Fentanyl 250mcg/5ml Vial IV 11/10/23 19:12 Q3MINP PRN Moderate to Severe Pain (4-10) Fentanyl Citrate 25 mcg 11/10/23 07:12 Fentanyl 100mcg/2ml Vial IV 11/10/23 19:12 Q3MINP PRN Moderate to Severe Pain (4-10) Flumazenil 0.2 mg 11/10/23 07:12 Flumazenil 0.1mg/Ml 5ml Vial IV 11/10/23 19:12 NEEDED PRN Sedation Heparin Sodium (Porcine) 10,000 unit 11/10/23 07:12 Heparin 1,000 Units/Ml 10ml Vial ([employer]) IV 11/10/23 11:12 NEEDED PRN Emergency Box [employer] Officer Heparin Sodium/Sodium Chloride 3,000 unit 11/10/23 07:12 Heparin 1,000 Units/500ml Ns ([employer]) IV 11/10/23 07:13 ONCE ONE Sodium Chloride 1,000 mls @ 25 mls/hr 11/10/23 07:15 Sod Chloride 0.9% 500ml Bag IV 11/11/23 07:12 .Q25H CARLA Lidocaine HCl 20 ml 11/10/23 07:12 Lidocaine 1% 10ml Mdv IJ 11/10/23 07:13 ONCE ONE Lidocaine HCl 20 ml 11/10/23 07:12 Lidocaine 1% 5ml Pf Vial IJ 11/10/23 07:13 ONCE ONE Midazolam HCl 1 mg 11/10/23 07:12 Midazolam 2mg/2ml Vial IV 11/10/23 19:12 Q3MINP PRN Sedation Midazolam HCl 1 mg 11/10/23 07:12 Midazolam Hcl 1mg/1ml 5ml Vial IV 11/10/23 19:12 Q3MINP PRN Sedation Naloxone HCl 0.4 mg 11/10/23 07:12 Naloxone 0.4mg/Ml Vial IV 11/10/23 19:12 Q5MINP PRN Decreased Respirations Nitroglycerin 800 mcg 11/10/23 07:12 Nitroglycerin 800mcg/8ml Syr ([employer]) IA 11/10/23 11:12 NEEDED PRN Emergency Box [employer] Verapamil HCl 2.5 mg 11/10/23 07:12 Verapamil 2.5mg/Ml 2ml Vial IV 11/10/23 07:13 ONCE ONE Discontinued Medications Generic Name Dose Route Start Last Admin Trade Name Freq PRN Reason Stop Dose Admin Heparin Sodium (Porcine) 5,000 unit 11/10/23 06:54 11/10/23 06:59 Heparin 1,000 Units/Ml 10ml Vial ([employer]) IV 11/10/23 06:55 Not Given ONCE ONE Heparin Sodium (Porcine) 5,000 unit 11/10/23 06:57 11/10/23 06:58 Heparin Sodium 5,000 Unit/Ml Vial IV 11/10/23 06:58 5,000 unit ONCE ONE Administration ORDERS Category Date Time Status XR chest portable Stat Exams 11/10/23 06:47 Taken Activated Partial Thrombo Time Stat Lab 11/10/23 06:50 Completed Complete Blood Count Auto Diff Stat Lab 11/10/23 06:50 Results Comprehensive Metabolic Panel Stat Lab 11/10/23 06:50 Completed D-Dimer Stat Lab 11/10/23 06:50 Completed Prothrombin Time INR Stat Lab 11/10/23 06:50 Completed Troponin I Q3H Lab 11/10/23 10:00 Ordered Troponin I Q3H Lab 11/10/23 13:00 Ordered Troponin I Stat Lab 11/10/23 06:50 Completed ECG Data Tracing #1: Attestation: I reviewed this ECG and interpreted as documented below: ECG Narrative: Sinus tachycardia with a ventricular rate of 112 bpm. Frequent PVCs. Significant ST depressions noted in V2, V3, and V4. Significant motion artifact noted. Concern for STEMI equivalent. No prior EKG for comparison. ECG initial impression date: 11/10/23 ECG initial impression time: 06:44 Tracing #2: Attestation: I reviewed this ECG and interpreted as documented below: ECG Narrative: Sinus tachycardia with frequent PVCs. Ventricular rate of 110 bpm. Again demonstrated significant depression in V2, V3, and V4 concerning for posterior STEMI equivalent. ECG initial impression date: 11/10/23 ECG initial impression time: 06:47 Tracing #3: Attestation: I reviewed this ECG and interpreted as documented below: ECG Narrative: POSTERIOR EKG. Sinus tachycardia with a ventricular rate of 112 bpm. Frequent PVCs. Intraventricular conduction delay noted. Posterior STEMI. ECG initial impression date: 11/10/23 ECG initial impression time: 06:49 MDM Narrative Medical Decision Narrative: In summary, this patient is a 63-year-old male presenting to the Emergency Department for evaluation of shortness of breath. Differential diagnoses considered include but are not limited to ACS, dysrhythmia, PE, COPD exacerbation, pleuritis, pneumonia, respiratory failure. Ruling out the most morbid conditions drove assessment. It should be noted patient's history includes CAD with prior LA, hypertension, hyperlipidemia, and extensive smoking history which are not at goal therapy. Thi s complicates all aspects of care by increasing patient's risk for morbidity. On exam, the patient is slightly tachycardic but otherwise vitals are reassuring. EKG was obtained right away, which was concerning for posterior STEMI equivalent with ST depressions in the anteroseptal leads. Posterior EKG did confirm STEMI. Given this, [employer] was activated immediately. Patient already received aspirin prior to arrival, and he was given heparin bolus down in the ED. I had an interactive discussion with heel shaper who notes no other orders at this time. Workup included CBC, CMP, troponin, chest x-ray, coags, D-dimer, and multiple EKGs as documented above. Patient was found to have leukocytosis as well as elevated creatinine of 1.3. I dependently interpreted x-ray prior to radiology read and noted no obvious acute pneumothorax or focal consolidation. Radiology read for final interpretation. D-dimer is negative per age-adjusted dimer. Troponin is elevated. Patient was taken emergently to the field laboratory operator. He left the ED to the field laboratory operator in stable condition.
[2023-11-10] MEDS: HEPARIN SODIUM 5,000 UNIT/ML VIAL 5000 UNIT IV (06:58)
--- NOTE | 2023-11-10 07:03 | PC.NURSE ---
at 0651 STEMI alert was activated. One iv present on arrival (20g LAC) and another line was placed 20 RAC, Zoll pads placed per stemi protocol. Cardiology was consulted and cath lab radiological technologist was activated. Patient was shaved per protocol. Monitors in place. Oxygen placed on 2LNC (no home oxygen use).
[2023-11-10 07:07] LABS: Basophils # 0.1 K/mm3 (0-0.2); Basophils % 0.4 % (0.1-2.0); Eosinophils # 0.3 K/mm3 (0.0-0.4); Eosinophils % 1.7 % (0.1-12.0); Hematocrit 47.9 % (42.0-52.0); Hemoglobin 15.3 g/dL (14.1-18.0); Lymphocytes % 11.1 % (10-50); Mean Corpuscular HGB Conc 31.9 g/dL (31.8-35.4); Mean Corpuscular Hemoglobin 28.9 pg (27.0-31.2); Mean Corpuscular Volume 90.6 fl (80-94); Mean Platelet Volume 8.7 fl (7.4-10.4); Monocytes # 0.7 K/mm3 (0.1-1.0); Monocytes % 4.1 % (1.7-9.3); Neutrophils # 14.7 K/mm3 (1.8-7.8); Neutrophils % 82.8 % (37.0-80.0); Platelet Count 345 K/mm3 (142-424); Red Blood Count 5.29 M/mm3 (4.60-6.20); Red Cell Distribution Width 14.6 % (11.5-17.5); White Blood Count 17.8 K/mm3 (4.8-10.8)
[2023-11-10 07:09] LABS: Activated Partial Thrombo Time 27.1 seconds (22.8-30.6); Alanine Aminotransferase 36 U/L (12-78); Albumin Level 4.5 g/dl (3.5-5.0); Albumin/Globulin Ratio 1.3 (1.1-1.8); Alkaline Phosphatase 129 U/L (38-126); Anion Gap 12.1 mEq/L (5-15); Aspartate Amino Transferase 38 U/L (17-59); Bilirubin,Total 0.4 mg/dl (0.2-1.3); Blood Urea Nitrogen 27 mg/dl (9-20); Calcium 9.2 mg/dl (8.4-10.2); Carbon Dioxide 26 mmol/L (22.0-30.0); Chloride 103 mmol/L (98-107); Creatinine Clearance Estimated 88 mL/min (50-200); Estimated Glomerular Filt Rate 56 ml/min (>60); GFR (African American) 68 ML/MIN (>60); Globulin 3.4 g/dL (1.3-3.2); Glucose 127 mg/dl (74-100); INR 0.99 (0.9-1.1); MANUAL DIFFERENTIAL MANUAL DIFFERENTIAL (MANUAL DIFF); Potassium 4.1 mmoL/L (3.5-5.1); Prothrombin Time 10.7 seconds (10.1-12.5); Sodium 137 mmol/L (136-145); Total Protein,Serum 7.9 g/dl (6.3-8.2)
[2023-11-10 07:14] LABS: D-Dimer 0.57 ug/mL (0.0-0.5)
--- NOTE | 2023-11-10 07:21 | PC.NURSE ---
Called chemical laboratory scientist to see if they were ready for patient. Robel states he will call when they are ready.
[2023-11-10 07:23] LABS: Troponin I 0.11 ng/ml (0.00-0.034)
[2023-11-10] MEDS: diphenhydrAMINE 50MG/ML VIAL 50 MG IV (07:43)
[2023-11-10] MEDS: LIDOCAINE 1% 10ML MDV 20 ML IJ (07:44)
[2023-11-10] MEDS: HEPARIN 1,000 UNITS/ML 10ML VIAL (CATH LAB) 10000 UNIT IV (07:44)
[2023-11-10] MEDS: NITROGLYCERIN 800MCG/8ML SYR (CATH LAB) 800 MCG IA (07:44)
[2023-11-10] MEDS: 0.9 % SODIUM CHLORIDE 500 ML 25 ML IV (07:44)
[2023-11-10] MEDS: HEPARIN 1,000 UNITS/500ML NS (CATH LAB) 3000 UNIT IV (07:44)
[2023-11-10] MEDS: MIDAZOLAM HCL 1MG/1ML 5ML VIAL 1 MG IV (07:45)
[2023-11-10] MEDS: FENTANYL 100MCG/2ML VIAL 50 MCG IV (07:45)
[2023-11-10] MEDS: LIDOCAINE 1% 10ML MDV 10 ML SQ (08:08)
--- NOTE | 2023-11-10 09:16 | HMH.PHAINT1 ---
Pharmacy Intervention Comments: MEDICATION RECONCILIATION COMPLETED ON PATIENT USING EXTERNAL FILL HISTORY FROM PHARMACY AND EVELYNE REPORT. -PALAK BOLANSO, MARGARITAD
[2023-11-10 09:22] LABS: Lymphocytes % 10 % (10-50); Monocytes % 5 % (2-9); Neutrophils % 85 % (42-76); Platelet Estimate Normal; RBC Morphology Normal; Total Cells Counted 100
[2023-11-10] MEDS: EPTIFIBATIDE 75MG/100ML BOTTLE 19 MG IV (09:43)
[2023-11-10] MEDS: EPTIFIBATIDE 75 MG/100 ML VIAL 16.8369999999999997 MG IV ×2 (09:49→19:30)
[2023-11-10] MEDS: NOREPINEPHRINE BITARTRATE 8 MG in DEXTROSE 5 % IN WATER 250 ML 9.67999999999999972 MG IV (09:51)
[2023-11-10] MEDS: HEPARIN SODIUM,PORCINE/D5W 500 ML 24 UNIT IV (09:52)
[2023-11-10] MEDS: EPINEPHrine 0.1 MG/ML 10ML SYRINGE (CRASH CART) 1 MG IV (09:53)
[2023-11-10] MEDS: IOPAMIDOL 410 ML IV (12:51)
[2023-11-10] MEDS: TICAGRELOR 90MG TABLET 180 MG PO (13:16)
[2023-11-10 13:20] LABS: Microscopic, Urine URINE MICROSCOPIC (MICROSCOPIC)
--- NOTE | 2023-11-10 13:27 | PC.NURSE ---
arrived by jessieer from quality assurance qa lab technician
--- NOTE | 2023-11-10 13:31 | P.CONPHA_ITS ---
[facility] Pharmacy Heparin Dosing Demographic Data Admission date:: 11/10/23 Date: 11/10/23 Time: 13:31 Allergies Allergy/AdvReac Type Severity Reaction Status Date / Time No Known Allergies Allergy Verified 04/18/20 11:24 Height: 1.75 m Weight: 105.2 kg Indication Medication therapy:: Heparin Current Active Problems On mechanically assisted ventilation (Acute) On intra-aortic balloon pump assist (Acute) Ischemic cardiomyopathy (Acute) Acute ST elevation myocardial infarction (STEMI) of posterior wall (Acute) Acute hypoxemic respiratory failure (Acute) Low back pain (Acute) Hypertension (Chronic) Hyperlipemia (Chronic) Coronary artery disease (Chronic) Obesity (BMI 30.0-34.9) (Acute) Tobacco use (Acute) CVA?: No Bleeding problem?: No Kidney disease?: No [place]?: No Desired PTT range:: 50-75 seconds Labs Anticoagulation Lab Results:: 11/10/23 06:50 Hgb 15.3 Hct 47.9 Plt Count 345 Monitoring Dose Monitor 1: Date: 11/10/23 Time: 06:50 PTT Result:: 27.1 (BASELINE) Infusion Rate:: 1,200 UNITS PER HOUR PER SUPPLIER SPECIALIST AT 1000 Comment:: 13,000 UNITS OF HEPARIN GIVEN IN DIRECTOR VETERINARY, DRIP THEN STOPPED WHEN PATIENT CAME TO FLOOR Dose Monitor 2: Date: 11/12/23 Time: 08:15 Infusion Rate:: 1,000 UNITS/HR Comment:: DRIP STARTED IN DIRECTOR VETERINARY, PTT ORDERED IN 6 HOURS. PATIENT RESTARTED ON HEPARIN DRIP D/T BALLOON PUMP INSERTION. Dose Monitor 3: Date: 11/12/23 Time: 14:15 PTT Result:: 35.8 Infusion Rate:: RATE INCREASED TO 1,400 UNITS/HR Comment:: 4,000 UNIT BOLUS. PATIENT WAS LATER TRANSFERRED TO ANOTHER FACILITY. Core Measures Is INR > or = 2 at discharge?: No Most Recent Labs:: Laboratory Results - last 24 hr 11/10/23 06:50: WBC 17.8 H, RBC 5.29, Hgb 15.3, Hct 47.9, MCV 90.6, MCH 28.9, MCHC 31.9, RDW 14.6, Plt Count 345, MPV 8.7, Neut % (Auto) 82.8 H, Lymph % (Auto) 11.1, [place] % (Auto) 4.1, Eos % (Auto) 1.7, Baso % (Auto) 0.4, Neut # (Auto) 14.7 H, Lymph # (Auto) 2.0, [place] # (Auto) 0.7, Eos # (Auto) 0.3, Baso # (Auto) 0.1, Total Counted 100, Neutrophils % (Manual) 85 H, Lymphocytes % (Manual) 10, Monocytes % (Manual) 5, Platelet Estimate Normal, RBC Morphology Normal, PT 10.7, INR 0.99, APTT 27.1, D-Dimer 0.57 H, Sodium 137, Potassium 4.1, Chloride 103, Carbon Dioxide 26, Anion Gap 12.1, BUN 27 H, Creatinine 1.30 H, Estimated Creat Clear 88, Estimated GFR 56 L, Est GFR ( Amer) 68, Glucose 127 H, Calcium 9.2, Total Bilirubin 0.4, AST 38, ALT 36, Alkaline Phosphatase 129 H, Troponin I 0.11 H, Total Protein 7.9, Albumin 4.5, Globulin 3.4 H, Albumin/Globulin Ratio 1.3 If INR was < than 2.0 why was therapy stopped?: PATIENT TRANSFERRED Were Heparin and Warfarin started on the same day?: No If not, why?: PATIENT TRANSFERRED
[2023-11-10 13:36] LABS: Appearance,Urine CLEAR (Clear); Bilirubin,Urine Negative (Negative); Blood, Urine Negative (Negative); Color,Urine YELLOW (Yellow); Glucose,Urine (UA) 2+ (Negative); Ketones,Urine Negative (Negative); Leukocyte Esterase,Urine Negative (Negative); Nitrate,Urine Negative (Negative); Protein,Urine Negative (Negative); Specific Gravity, Urine <= 1.005 (1.005-1.030); Urobilinogen,Urine 0.2 EU/dl (0.2)
[2023-11-10 13:42] LABS: RBC,Urine Occasional #/hpf (0-3); Squamous Epithelial Cell,Urine Occasional #/hpf (0-5); WBC,Urine Occasional #/hpf (0-3)
[2023-11-10 13:57] LABS: CATHL Activated Clotting Time 236 SEC (74-125)
[2023-11-10 13:58] LABS: CATHL Activated Clotting Time > 400 SEC (74-125)
[2023-11-10 14:00] LABS: CATHL Activated Clotting Time 245 SEC (74-125)
--- NOTE | 2023-11-10 14:13 | ECG_ITS ---
APPROVED REPORT Exam: Resting ECG HR:78 bpm ECG Measurements Heart Rate 78 AXES UT 176 P 45 QRSd 133 QRS 64 QT 393 T 183 QTc 426 Conclusion SINUS RHYTHM INTRAVENTRICULAR CONDUCTION DELAY [130+ ms QRS DURATION] ABNORMAL ECG UNCONFIRMED REPORT Electronically signed by : Jeffery Benoit MD 11/11/2023 17:49:41
[2023-11-10 14:40] LABS: Basophils % 0.3 % (0.1-2.0); Eosinophils # 0.2 K/mm3 (0.0-0.4); Eosinophils % 1.1 % (0.1-12.0); Hematocrit 40.9 % (42.0-52.0); Lymphocytes # 2.1 K/mm3 (0.7-4.5); Lymphocytes % 14.9 % (10-50); Mean Corpuscular HGB Conc 31.9 g/dL (31.8-35.4); Mean Corpuscular Hemoglobin 29.2 pg (27.0-31.2); Mean Corpuscular Volume 91.6 fl (80-94); Mean Platelet Volume 9.6 fl (7.4-10.4); Monocytes # 0.5 K/mm3 (0.1-1.0); Monocytes % 3.7 % (1.7-9.3); Neutrophils # 11.2 K/mm3 (1.8-7.8); Neutrophils % 80.1 % (37.0-80.0); Platelet Count 298 K/mm3 (142-424); Red Blood Count 4.46 M/mm3 (4.60-6.20); Red Cell Distribution Width 14.5 % (11.5-17.5)
[2023-11-10] MEDS: IRON SUCROSE COMPLEX 200 MG in 0.9 % SODIUM CHLORIDE 100 ML 220 MG IV (14:47)
--- NOTE | 2023-11-10 15:44 | PC.NURSE ---
Addendum entered by Nevaeh Burrows RN 11/10/23 17:10: 1650 pt changed to 4lpm with cannula in mouth for comfort. Original Note: pt arrived on unit on 4lpm/nc at 1330. pt o2 increased to 50% venti mask by Stephanie in RT at 1450 1540 pt o2 decreased to 40% venti r/t o2 @ 100%
--- NOTE | 2023-11-10 16:19 | PC.NURSE ---
1330 Bedside report receveid from Ingrid Boyer. pt r radial cath site noted to have tracelet in place, no oozing noted. upon transferring pt to bed brb noted to be flowing from pt right femoral site with balloon pump in place. ingrid boyer removed dressing and proceeded to hold pressure. new dressing was applied. 1350 pt in process of being cleaned up and vitals assessed. large amount of blood noted to be flowing from site. old dressing removed and pressure held while Dr Leone paged at 1355. md returned at call at 1356. notified md that pt has brb flowing freely from site. pressure currently being held. states to call cathode ray tube assembler and have then apply a femstop and to dc heparin drip. cathode ray tube assembler called at 1400 and notified of new orders from . ingrid boyer called lurdes and clarified placing femstop on pt with balloon pump. 1410 ingrid boyer and malachi elliott at bedside to apply femstop. faec to face received order from dr leone for femstop to stay in place to control bleeding. heparin drip was dc at [address] Leone at bedside as well. per type and cross pt for 2 units of prbc and put on hold. stat cbc, ekg and give 200mg dose of venofer. 1430 this RN clarified spoke with Dr Leone on phone to clarify verbal orders a second time that were received at 1410 that heparin drip is supposed to be stopped while pt is on a balloon pump. states that as long as pt is on balloon pump 1:1 it is acceptable for pt to not be on heparin drip. Delroy Bey RN given phone to speak with Dr Leone to have 2nd witness that heparin drip is ok to be stopped at this time while pt is on balloon pump. 1445 Dr Leone called and requested update on pt. still awaiting bed with . pt c/o pain, meds to be ordered by Dr Adam. pt bp surrently 80's sys on balloon pump and 100's sys on NIBP. femstop still in place.
[2023-11-10] MEDS: OXYCODONE 7.5MG W/APAP 325MG TABLET 1 EACH PO ×3 (16:39→21:49)
--- NOTE | 2023-11-10 17:01 | PC.NURSE ---
pulses palpable (1+) but also verified with doppler upon arrival to unit. pulse 2+ palpable in l radial artery
[2023-11-10] MEDS: ONDANSETRON 4MG/2ML VIAL 4 MG IV (18:14)
[2023-11-10 18:28] LABS: PTT Heparin (inpatient only) 34.4 Seconds (23.6-34.0)
--- NOTE | 2023-11-10 18:48 | PC.NURSE ---
1841 clarified order for integrilin. received in report from mitch boyer that integrilin was to run for 18 hrs. order was dc when attempting to scan new bottle. called Dr Leone to clarify. per infuse integrilin until 2129, then stop drip and attempt to wean off/remove femstop
--- NOTE | 2023-11-10 18:49 | P.HP_ITS ---
History of Present Illness *Admission Date: 11/10/23 *Reason for visit:: Chest pain *History of present illness: Patient is a 63-year-old male with past medical history of tobacco use, CAD, hypertension hyperlipidemia obesity who presents to the hospital due to chest pain. According to the patient chest pain woke him up from the sleep around 3 AM this morning. It was 10/10 in intensity, nonradiating, associated with deep pressure. On arrival to the emergency department he was diagnosed with a STEMI, cardiology was consulted and patient had cardiac cath performed. Patient had a brief episode of cardiac arrest, did receive 15 seconds of CPR. Patient was placed on aortic balloon pump and was a scheduled for transfer to , facility did not have beds, patient was admitted here for transfer to . Patient is alert awake holding conversations. [facility] Disclaimer: The information contained in this section may have been updated after the patient was seen, as this information can be updated by other users. Medical History CAD (coronary artery disease) Diverticulitis HLD (hyperlipidemia) HTN (hypertension) Myocardial infarct Neck pain Surgical History H/O right knee surgery History of hip surgery Hx of colonoscopy Family History (Updated 11/10/23 @ 16:16 by Nevaeh Burrows RN) Other COPD (chronic obstructive pulmonary disease) Cancer Diabetes Heart attack Hyperlipidemia Hypertension Social History (Updated 11/10/23 @ 16:17 by Nevaeh Burrows RN) Smoking Status: Former smoker tobacco type: cigarettes packs per day: 2 alcohol intake: current substance use type: denies use current occupational status: employed Travel in the last 8 weeks: None housing: apartment lives independently: Yes marital status: single number of children: 2 number of grandchildren: 9 caffeine: Yes Review of Systems Review of Systems Review of systems (narrative): as per [facility] Meds Home Medications and Allergies Home Medications Medication Instructions Recorded Confirmed Type omeprazole 40 mg capsule,delayed 40 mg PO DAILY Acid Reflux 10/28/21 11/10/23 History release amitriptyline 100 mg tablet 100 mg PO DAILY Mood 11/10/23 11/10/23 History aspirin 81 mg tablet,delayed 81 mg PO DAILY Heart Health 11/10/23 11/10/23 History release atorvastatin 80 mg tablet 80 mg PO DAILY Cholesterol 11/10/23 11/10/23 History empagliflozin 10 mg tablet 10 mg PO DAILY Heart Failure 11/10/23 11/10/23 History (Jardiance) gabapentin 400 mg capsule 400 mg PO TID Pain 11/10/23 11/10/23 History lisinopril 40 mg tablet 40 mg PO DAILY High Blood Pressure 11/10/23 11/10/23 History metoprolol succinate 50 mg 50 mg PO DAILY High Blood Pressure 11/10/23 11/10/23 History tablet,extended release 24 hr oxycodone 15 mg tablet 15 mg PO BIDP PRN Moderate Pain 11/10/23 11/10/23 History (Scale Score 5-6) tamsulosin 0.4 mg capsule 0.4 mg PO DAILY Prostate 11/10/23 11/10/23 History New Prescriptions to Start Prescriptions: Allergies Allergy/AdvReac Type Severity Reaction Status Date / Time No Known Allergies Allergy Verified 04/18/20 11:24 Exam Data for Last 24 hours Vital signs and Labs for Last 24 Hours: Temp Pulse Resp BP Pulse Ox O2 Del Method O2 Flow Rate 97.8 F 98 H 33 H 138/53 L 91 L Nasal Cannula 4 11/10/23 16:35 11/10/23 17:45 11/10/23 17:45 11/10/23 17:45 11/10/23 17:45 11/10/23 17:45 11/10/23 17:45 FiO2 40 11/10/23 14:45 Laboratory Results - last 24 hr 11/10/23 06:50: WBC 17.8 H, RBC 5.29, Hgb 15.3, Hct 47.9, MCV 90.6, MCH 28.9, MCHC 31.9, RDW 14.6, Plt Count 345, MPV 8.7, Neut % (Auto) 82.8 H, Lymph % (Auto) 11.1, [place] % (Auto) 4.1, Eos % (Auto) 1.7, Baso % (Auto) 0.4, Neut # (Auto) 14.7 H, Lymph # (Auto) 2.0, [place] # (Auto) 0.7, Eos # (Auto) 0.3, Baso # (Auto) 0.1, Total Counted 100, Neutrophils % (Manual) 85 H, Lymphocytes % (Manual) 10, Monocytes % (Manual) 5, Platelet Estimate Normal, RBC Morphology Normal, PT 10.7, INR 0.99, APTT 27.1, D-Dimer 0.57 H, Sodium 137, Potassium 4.1, Chloride 103, Carbon Dioxide 26, Anion Gap 12.1, BUN 27 H, Creatinine 1.30 H, Estimated Creat Clear 88, Estimated GFR 56 L, Est GFR ( Amer) 68, Glucose 127 H, Calcium 9.2, Total Bilirubin 0.4, AST 38, ALT 36, Alkaline Phosphatase 129 H, Troponin I 0.11 H, Total Protein 7.9, Albumin 4.5, Globulin 3.4 H, Albumin/Globulin Ratio 1.3 11/10/23 09:05: Activated Clotting Time 245 H* 11/10/23 11:03: Activated Clotting Time > 400 H* D 11/10/23 12:44: Activated Clotting Time 236 H* D 11/10/23 13:15: Urine Color Yellow, Urine Appearance Clear, Urine pH 5.0, Ur Specific [place] <= 1.005, Urine Protein Negative, Urine Glucose (UA) 2+, Urine Ketones Negative, Urine Blood Negative, Urine Nitrate Negative, Urine Bilirubin Negative, Urine Urobilinogen 0.2, Ur Leukocyte Esterase Negative, Urine RBC Occasional, Urine WBC Occasional, Ur Squamous Epith Cells Occasional, Urine Bacteria None 11/10/23 14:25: WBC 14.0 H, RBC 4.46 L, Hgb 13.0 L D, Hct 40.9 L, MCV 91.6, MCH 29.2, MCHC 31.9, RDW 14.5, Plt Count 298, MPV 9.6, Neut % (Auto) 80.1 H, Lymph % (Auto) 14.9, [place] % (Auto) 3.7, Eos % (Auto) 1.1, Baso % (Auto) 0.3, Neut # (Auto) 11.2 H, Lymph # (Auto) 2.1, [place] # (Auto) 0.5, Eos # (Auto) 0.2, Baso # (Auto) 0.0 11/10/23 14:50: Blood Type O Negative, Blood Type Confirm O Negative, Antibody Screen Negative, Crossmatch ([facility]) See Detail 11/10/23 18:00: APTT 34.4 H I & O for Last 24 hours: Intake & Output 11/07/23 11/08/23 11/09/23 11/10/23 23:59 23:59 23:59 23:59 Intake Total 438.628 / 438.628 Output Total 1600 / 1600 Balance -1161.372 / -1161.372 Weight 110.733 kg Constitutional Constitutional: no acute distress *Routine HEENT Exam Head: Present normocephalic Eye: Present EOMI and PERRL ENT: Present mucous membranes moist *Routine Neck Exam Neck: Present supple; Absent lymphadenopathy *Routine Respiratory Exam Respiratory: Present CTA bilaterally *Routine Cardiovascular Exam Cardiovascular: Present RRR *Routine Abdominal Exam Abdominal: Present soft and normoactive bowel sounds; Absent tenderness *Routine Rectal Exam Rectal:: deferred *Routine Genitalia Exam Genitalia:: deferred *Routine Extremities Exam Extremities: Absent cyanosis, clubbing or edema *Routine Skin Exam Skin: Present warm; Absent rash *Routine Neurological Exam Neurological: Present alert and oriented X3 Assessment and Plan *Assessment and plan (1) Acute ST elevation myocardial infarction (STEMI) of posterior wall: Status: Acute Category: Medical Code(s): I21.29 - ST elevation (STEMI) myocardial infarction involving other sites (2) Acute hypoxemic respiratory failure: Status: Acute Category: Medical Code(s): J96.01 - Acute respiratory failure with hypoxia (3) Low back pain: Status: Acute Category: Medical Code(s): M54.50 - Low back pain, unspecified (4) Hypertension: Status: Chronic Category: Medical Code(s): I10 - Essential (primary) hypertension (5) Hyperlipemia: Status: Chronic Category: Medical Code(s): E78.5 - Hyperlipidemia, unspecified (6) Coronary artery disease: Status: Chronic Category: Medical Code(s): I25.10 - Atherosclerotic heart disease of [place] coronary artery without angina pectoris (7) Obesity (BMI 30.0-34.9): Status: Acute Category: Medical Code(s): E66.9 - Obesity, unspecified (8) Tobacco use: Status: Acute Category: Social Hx Code(s): Z72.0 - Tobacco use Plan Patient is a 63-year-old male with past medical history of tobacco use, CAD, hypertension hyperlipidemia obesity who presents to the hospital due to chest pain. According to the patient chest pain woke him up from the sleep around 3 AM this morning. It was 10/10 in intensity, nonradiating, associated with deep pressure. On arrival to the emergency department he was diagnosed with a STEMI, cardiology was consulted and patient had cardiac cath performed. Patient had a brief episode of cardiac arrest, did receive 15 seconds of CPR. Patient was placed on aortic balloon pump and was a scheduled for transfer to , facility did not have beds, patient was admitted here for transfer to . Patient is alert awake holding conversations. Assessment NSTEMI status postcardiac cath Leukocytosis likely reactive CAD Hypertension Hyperlipidemia Obesity Tobacco use Plan Patient is started on aortic balloon pump, patient is a scheduled for transfer to Hospital awaiting bed availability Continue IV heparin Aspirin, Integrilin, pain control, Brilinta Verapamil Resume home atorvastatin, Neurontin DVT prophylaxis-on IV heparin
[2023-11-10] MEDS: MORPHINE 2MG/ML SYRINGE 1 MG IV (19:40)
[2023-11-10] MEDS: PANTOPRAZOLE 40MG TABLET 40 MG PO (20:53)
[2023-11-10] MEDS: TAMSULOSIN 0.4MG CAPSULE 0.400000000000000022 MG PO (20:53)
[2023-11-10] MEDS: GABAPENTIN 400MG CAPSULE 400 MG PO (20:53)
[2023-11-10] MEDS: LORazepam 2MG/ML VIAL 0.5 MG IV (20:54)
[2023-11-10] MEDS: ATORVASTATIN 40MG TABLET 80 MG PO (21:01)
--- NOTE | 2023-11-10 21:30 | PC.NURSE ---
Integrilin gtt stopped at 2130
[2023-11-10] MEDS: MORPHINE 2MG/ML SYRINGE 2 MG IV (22:14)
[2023-11-11] VITALS (54 sets, daily range): BP systolic 83–176; BP diastolic 38–102; PULSE 53–131; RESP 12–29; TEMP 36.5–36.8; O2SAT 92–100; BMI 35.3
--- NOTE | 2023-11-11 | IR_ITS ---
APPROVED REPORT Patient Location: Inpatient Agricultural Inspector: TREVOR Wang RT (R) PROCEDURES Right heart catheterization Removal of intra-aortic balloon pump INDICATION Cardiogenic shock, Coronary artery disease, Elevation myocardial infarction, Informed consent was obtained prior to the procedure. COMPLICATIONS None Estimated Blood Loss: Less than 10 mls TECHNIQUE One percent lidocaine was used to anesthetize the right anterior aspect of the neck. A business development engineer needle was used to identify the right internal jugular vein. Following this a larger cannulation needle was used to cannulate the right internal jugular vein and a wire was passed into the vein. Prior to the 7 Kitt[place] sheath being inserted the wire was confirmed under fluoroscopic guidance to be in the inferior vena cava. A 7 [place] sheath was introduced and a [place]Denise catheter was floated using hemodynamic waveforms in the pulmonary artery, right ventricle , and right atrium. Saturations were obtained in the pulmonary artery and the right atrium. At the end of the procedure the patient was transferred to the postop holding area in stable condition for sheath removal. The right groin was sterilely prepped and the intra-aortic balloon pump was turned off on standby for over 5 minutes. Patient remained hemodynamically stable. The intra-aortic balloon pump was removed and good hemostasis was achieved using Perclose device. Patient was transferred to postop holding area in stable condition ANGIOGRAPHIC RESULTS Right atrial pressure 10 mmHg Pulmonary artery pressure 45/25 mmHg Pulmonary artery occlusion pressure 22 mmHg Hemoglobin 12.1 Right atrial saturation 70% Pulmonary artery saturation 70% Aortic saturation 98% Cardiac output 6.1 L/min Cardiac index 2.7 IMPRESSION Successful removal of intra aortic balloon pump Right heart catheterization which reveals appropriate cardiac output PLAN 1. Continue supportive care 2. Patient would likely benefit from low-dose diuresis 3. Standard therapy for ischemic cardiomyopathy and systolic heart failure Electronically signed by : Jamaal Jiménez MD 11/11/2023 14:14:18
--- NOTE | 2023-11-11 | IR_ITS ---
APPROVED REPORT Patient Location: Inpatient Tangible Personal Property Appraiser: TREVOR Harrison RT (R) PROCEDURES Right internal jugular vein access Placement of transvenous temporary pacemaker into the right ventricular apex INDICATION Recurrent asystole, Informed consent was obtained prior to the procedure. COMPLICATIONS None Estimated Blood Loss: Less than 10 mls TECHNIQUE Patient was taken to the International Sales Representative and sterilely prepped. 1% lidocaine used anesthetize the right anterior aspect of the right neck. The right internal jugular vein was accessed via the center technique and a 5 [place]gas[place] sheath is placed in the right internal jugular vein. Under fluoroscopic guidance a transvenous pacemaker wire was placed into the right ventricular apex. Patient tolerated the procedure well. IMPRESSION Successful placement of temporary transvenous pacemaker PLAN 1. Postoperative supportive care Electronically signed by : Jamaal Jiménez MD 11/12/2023 11:18:54
[2023-11-11] MEDS: MORPHINE 2MG/ML SYRINGE 2 MG IV ×4 (00:52→10:15)
[2023-11-11] MEDS: OXYCODONE 7.5MG W/APAP 325MG TABLET 1 EACH PO ×4 (02:26→17:47)
--- NOTE | 2023-11-11 02:38 | PC.NURSE ---
Called Gary Rodriguez APRN to bedside to assess pt due to new mottling on bilat knees and femstop continuing to be in place due to bleeding. LIEUTENANT GENERAL states to update cardiology
--- NOTE | 2023-11-11 02:50 | PC.NURSE ---
Harris Waite MD and update on pt current status- have been unable to get femstop off, pt actively bleeding from site when femstop loosened. Pt has mottling on bilateral knee caps, good peripheral pulses. states NNO, continue to monitor
--- NOTE | 2023-11-11 02:55 | PC.NURSE ---
Vasu calls this RN and states to order STAT CBC at this time.
--- NOTE | 2023-11-11 03:01 | PC.NURSE ---
Vasu calls this RN and states to give 250ml NS bolus, read back, verified.
--- NOTE | 2023-11-11 03:19 | PC.NURSE ---
Vasu calls this RN and states not to give NS 250ml and to order 500ml LR bolus. Read back, verified and carried out.
[2023-11-11] MEDS: LACTATED RINGERS 1000ML 500 ML 999 ML IV (03:24)
[2023-11-11 04:17] LABS: Basophils # 0.1 K/mm3 (0-0.2); Basophils % 0.7 % (0.1-2.0); Eosinophils # 0.3 K/mm3 (0.0-0.4); Eosinophils % 2.1 % (0.1-12.0); Hematocrit 34.9 % (42.0-52.0); Hemoglobin 11.9 g/dL (14.1-18.0); Lymphocytes # 3.2 K/mm3 (0.7-4.5); Lymphocytes % 20.7 % (10-50); Mean Corpuscular HGB Conc 34.1 g/dL (31.8-35.4); Mean Corpuscular Hemoglobin 30.1 pg (27.0-31.2); Mean Corpuscular Volume 88.5 fl (80-94); Mean Platelet Volume 8.7 fl (7.4-10.4); Monocytes # 1.1 K/mm3 (0.1-1.0); Monocytes % 6.8 % (1.7-9.3); Neutrophils # 10.8 K/mm3 (1.8-7.8); Neutrophils % 69.8 % (37.0-80.0); Platelet Count 282 K/mm3 (142-424); Red Blood Count 3.95 M/mm3 (4.60-6.20); Red Cell Distribution Width 14.8 % (11.5-17.5); White Blood Count 15.5 K/mm3 (4.8-10.8)
[2023-11-11 04:18] LABS: MANUAL DIFFERENTIAL MANUAL DIFFERENTIAL (MANUAL DIFF)
--- NOTE | 2023-11-11 04:19 | PC.NURSE ---
Updated [facility] on pt. No beds available at this time.
--- NOTE | 2023-11-11 04:35 | PC.NURSE ---
Notified Vasu CARUSO of STAT cbc results, current vitals, and pts continued c/o back pain. NNO at this time.
--- NOTE | 2023-11-11 04:36 | PC.NURSE ---
Vasu CARUSO states to start LR @ 40ml/hr . Read back, verified and carried out.
[2023-11-11 04:39] LABS: Lymphocytes % 21 % (10-50); Monocytes % 2 % (2-9); Neutrophils % 76 % (42-76); Platelet Estimate Normal; RBC Morphology Normal; Total Cells Counted 100
[2023-11-11] MEDS: LACTATED RINGERS 1000ML 1,000 ML 40 ML IV (04:40)
[2023-11-11] MEDS: diazePAM 10MG/2ML SYRINGE 2 MG IV ×2 (05:33→11:01)
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
[2023-11-11 07:02] LABS: Basophils # 0.1 K/mm3 (0-0.2); Basophils % 0.4 % (0.1-2.0); Eosinophils # 0.3 K/mm3 (0.0-0.4); Eosinophils % 1.7 % (0.1-12.0); Hematocrit 36.7 % (42.0-52.0); Hemoglobin 12.1 g/dL (14.1-18.0); Lymphocytes % 18.3 % (10-50); Mean Corpuscular HGB Conc 33.1 g/dL (31.8-35.4); Mean Corpuscular Hemoglobin 29.4 pg (27.0-31.2); Mean Platelet Volume 8.9 fl (7.4-10.4); Monocytes # 1.2 K/mm3 (0.1-1.0); Monocytes % 7.4 % (1.7-9.3); Neutrophils # 11.8 K/mm3 (1.8-7.8); Neutrophils % 72.2 % (37.0-80.0); Platelet Count 278 K/mm3 (142-424); Red Blood Count 4.12 M/mm3 (4.60-6.20); White Blood Count 16.4 K/mm3 (4.8-10.8)
[2023-11-11 07:08] LABS: Magnesium 1.9 mg/dl (1.6-2.3)
[2023-11-11 07:09] LABS: Anion Gap 11.5 mEq/L (5-15); Blood Urea Nitrogen 23 mg/dl (9-20); Calcium 8.4 mg/dl (8.4-10.2); Carbon Dioxide 22 mmol/L (22.0-30.0); Chloride 106 mmol/L (98-107); Creatinine Clearance Estimated 117 mL/min (50-200); Estimated Glomerular Filt Rate 76 ml/min (>60); GFR (African American) 92 ML/MIN (>60); Glucose 117 mg/dl (74-100); Potassium 4.5 mmoL/L (3.5-5.1); Sodium 135 mmol/L (136-145)
--- NOTE | 2023-11-11 07:13 | SUR.PHASEII ---
Called Dr Leone regarding patient, asked if he wanted to restart Heparin because patient still has balloon pump running.Dr Leone stated he did not want Heparin restarted at this time.
[2023-11-11] MEDS: NOREPINEPHRINE BITARTRATE 8 MG in DEXTROSE 5 % IN WATER 250 ML 3.87000000000000011 MG IV (07:36)
--- NOTE | 2023-11-11 07:50 | CA_ITS ---
FINAL REPORT CLINICAL HISTORY: R/O THROMBUS,STEMI,PT HAS BALLOON PUMP IN RIGHT GROIN,SOA,PAIN COMPARISON: none FINDINGS: LOWER EXTREMITY DUPLEX DOPPLER Color Doppler and duplex Doppler of the right lower extremity was performed. Spectral analysis was also performed. Velocities were measured at multiple levels. All velocities are in centimeters per second. GEOTECHNICAL ENGINEERING TECHNICIAN: Not visualized secondary to balloon pump SFA Mid: 51 SFA Distal: 111 Pop Prox: 33 MANAGER DEVELOPMENTAL: 32 Per Mid: 30 KEVON: 51 Waveforms are triphasic and biphasic. IMPRESSION: No evidence of significant vascular disease. Reviewed, Interpreted and Dictated by Daniel Aldrich III, MD Transcribed by Elizabeth Crandall Authenticated and [facility]
--- NOTE | 2023-11-11 07:52 | CA_ITS ---
FINAL REPORT TECHNIQUE: Color Doppler, duplex Doppler and compression sonography of the right lower extremity venous system was performed. CLINICAL HISTORY: R/O DVT,PT HAS BALLOON PUMP IN PLACE RIGHT GROIN,SOA,STEMI COMPARISON: None FINDINGS: Common femoral vein not visualized secondary to balloon pump. There is no evidence of deep venous thrombosis from the level of the groin to the calf. The veins are patent and compressible. IMPRESSION: No evidence of deep venous thrombosis right lower extremity. Reviewed, Interpreted and Dictated by Daniel Aldrich III, MD Transcribed by Elizabeth Crandall Authenticated and . [facility]
[2023-11-11] MEDS: MAGNESIUM SULFATE IN WATER 2 GM/50 ML PIGGYBACK IV (08:36)
[2023-11-11] MEDS: GABAPENTIN 400MG CAPSULE 400 MG PO ×2 (08:37→12:16)
[2023-11-11] MEDS: ASPIRIN EC 81MG TABLET 81 MG PO (08:37)
[2023-11-11] MEDS: TICAGRELOR 90MG TABLET 90 MG PO (08:37)
[2023-11-11] MEDS: TROLAMINE SALICYLATE TP (08:37)
[2023-11-11 08:48] LABS: Chol/HDL Ratio 4.9 (1-3.5); Cholesterol 133 mg/dl (140-200); HDL Cholesterol 27 mg/dl (40-60); Triglycerides 181 mg/dl (30-150); VLDL Cholesterol 36 mg/dL (0-40)
[2023-11-11 08:59] LABS: Direct LDL Cholesterol 62.74 mg/dL (100-129)
--- NOTE | 2023-11-11 08:59 | CA_ITS ---
APPROVED REPORT EXAM: Comprehensive 2D, Doppler, and color-flow Echocardiogram Human Resources Psychologist: Dianna Odonnell RT(R) Ht: 5 ft 8 in Wt: 238lbs BSA: 2.20 BP: 154/77 mmHg Indications: STEMI, CP, balloon pump in place, pt supine on back, unable to roll secondary to pump, limited windows, HTN, HLD, obesity, cardiac arrest, CAD. 2D Dimensions LVEF (Castro's) 40.60 % M: 52 - 72 LV Volume 163.20 mL M: 62 - 150 LV Volume Index 74.2 mL/m2 M: 34 - 74 EF AP4 41.90 % EF AP2 39.6 % EF BP 40.6 % GL Strain -11.1 % M-Mode Dimensions RVDd 2.05 cm (0.9-2.6) LA Diam 3.55 cm (1.9-4.0) LVDd 7.49 cm (3.5-5.7) LVDs 6.60 cm (3.5-5.7) IVSd 0.80 cm (0.6-1.1) PWd 0.64 cm (0.6-1.1) EF (Teich) 24.80% FS 11.90% EDV (Teich) 297.40 mL ESV (Teich) 223.60 mL LV Diastology E Decel Time 160 (160-240 msec) E/A Ratio 1.6 Aortic Valve ASHLEY Index 0.73 cm2/m2 AoV Peak Sujit. 182.0 (50-130 cm/s) AO Peak GR. 13.40 mmHg AO Mean GR. 6.60 (<5 mmHg) AO VTI 31.2 (18-25 cm) ASHLEY (VTI) 1.64 (2.5-4.5 cm2) Mitral Valve MV E Max Sujit. 97.0 (40-130 cm/s) MV A Velocity 60.0 (40-130 cm/s) E/A Ratio 1.61 MV PHT 47.0 ms Left Ventricle The left ventricle is normal size. The left ventricular systolic function is mildly to moderately reduced. There is increased LV wall thickness. There is severe hypokinesis of the anterior, anterolateral, and anteroseptal LV greenwood. Grade 1 diastolic dysfunction is present. LVEF is 40%. Right Ventricle The right ventricle is normal size. The right ventricular systolic function is normal. Atria The left atrium size is normal. The right atrium size is normal. There is no Doppler evidence of interatrial shunt. Aortic Valve The aortic valve is mildly thickened. There is aortic sclerosis, but no evidence of aortic stenosis. No aortic regurgitation is present. Mitral Valve The mitral valve leaflets are mildly thickened. No evidence of mitral valve stenosis. Mild mitral regurgitation. Tricuspid Valve The tricuspid valve leaflets are thin and pliable. Trace tricuspid regurgitation. There is insufficient TR jet to estimate RVSP. Pulmonic Valve The pulmonic valve is not well visualized. Great Vessels The aortic root is normal in size. The ascending aorta is normal in size. IVC is normal in size and collapses >50% with inspiration. Pericardium There is no pericardial effusion. Other Information Study Quality: Fair Conclusion Mild to moderate reduction in LV systolic function (LVEF 40%). Severe hypokinesis of the anterior, anterolateral, and anteroseptal LV greenwood. Mild MR. Electronically signed by : Stephania Porter MD 11/11/2023 19:44:32
--- NOTE | 2023-11-11 12:33 | PC.NURSE ---
Home Medications [facility] Medication Instructions Recorded Confirmed omeprazole 40 mg capsule,delayed 40 mg PO DAILY Acid Reflux 10/28/21 11/10/23 release amitriptyline 100 mg tablet 100 mg PO DAILY Mood 11/10/23 11/10/23 aspirin 81 mg tablet,delayed 81 mg PO DAILY Heart Health 11/10/23 11/10/23 release atorvastatin 80 mg tablet 80 mg PO DAILY Cholesterol 11/10/23 11/10/23 empagliflozin 10 mg tablet 10 mg PO DAILY Heart Failure 11/10/23 11/10/23 (Jardiance) gabapentin 400 mg capsule 400 mg PO TID Pain 11/10/23 11/10/23 lisinopril 40 mg tablet 40 mg PO DAILY High Blood Pressure 11/10/23 11/10/23 metoprolol succinate 50 mg 50 mg PO DAILY High Blood Pressure 11/10/23 11/10/23 tablet,extended release 24 hr oxycodone 15 mg tablet 15 mg PO BIDP PRN Moderate Pain 11/10/23 11/10/23 (Scale Score 5-6) tamsulosin 0.4 mg capsule 0.4 mg PO DAILY Prostate 11/10/23 11/10/23
--- NOTE | 2023-11-11 13:20 | PC.NURSE ---
pt to [facility] via stretcher
[2023-11-11 14:25] LABS: CATHL Arterial O2 SAT 70.3 % (90-100)
--- NOTE | 2023-11-11 14:30 | P.PN_ITS ---
Subjective *Date: 11/11/23 *Time: 14:30 Interval history: complains of back pain from lying flat on IABP, dnied SOB, alert awake and holding conversations Exam Data for Last 24 hours Vital signs and Labs for Last 24 Hours: Temp Pulse Resp BP Pulse Ox O2 Del Method O2 Flow Rate 97.7 F 101 H 19 113/64 98 Nasal Cannula 2 11/11/23 08:58 11/11/23 14:10 11/11/23 14:10 11/11/23 14:10 11/11/23 14:10 11/11/23 13:00 11/11/23 13:00 FiO2 40 11/10/23 15:45 Laboratory Results - last 24 hr 11/10/23 14:25: WBC 14.0 H, RBC 4.46 L, Hgb 13.0 L D, Hct 40.9 L, MCV 91.6, MCH 29.2, MCHC 31.9, RDW 14.5, Plt Count 298, MPV 9.6, Neut % (Auto) 80.1 H, Lymph % (Auto) 14.9, [place] % (Auto) 3.7, Eos % (Auto) 1.1, Baso % (Auto) 0.3, Neut # (Auto) 11.2 H, Lymph # (Auto) 2.1, [place] # (Auto) 0.5, Eos # (Auto) 0.2, Baso # (Auto) 0.0 11/10/23 14:50: Blood Type O Negative, Blood Type Confirm O Negative, Antibody Screen Negative, Crossmatch ([facility]) See Detail 11/10/23 18:00: APTT 34.4 H 11/11/23 01:45: ABG O2 Sat (Measured) 70.3 L 11/11/23 04:10: WBC 15.5 H, RBC 3.95 L, Hgb 11.9 L, Hct 34.9 L, MCV 88.5, MCH 30.1, MCHC 34.1, RDW 14.8, Plt Count 282, MPV 8.7, Neut % (Auto) 69.8, Lymph % (Auto) 20.7, [place] % (Auto) 6.8, Eos % (Auto) 2.1, Baso % (Auto) 0.7, Neut # (Auto) 10.8 H, Lymph # (Auto) 3.2, [place] # (Auto) 1.1 H, Eos # (Auto) 0.3, Baso # (Auto) 0.1, Total Counted 100, Neutrophils % (Manual) 76, Lymphocytes % (Manual) 21, Monocytes % (Manual) 2, Basophils % (Manual) 1.0, Platelet Estimate Normal, RBC Morphology Normal 11/11/23 05:41: WBC 16.4 H, RBC 4.12 L, Hgb 12.1 L, Hct 36.7 L, MCV 89.0, MCH 29.4, MCHC 33.1, RDW 15.0, Plt Count 278, MPV 8.9, Neut % (Auto) 72.2, Lymph % (Auto) 18.3, [place] % (Auto) 7.4, Eos % (Auto) 1.7, Baso % (Auto) 0.4, Neut # (Auto) 11.8 H, Lymph # (Auto) 3.0, [place] # (Auto) 1.2 H, Eos # (Auto) 0.3, Baso # (Auto) 0.1, Sodium 135 L, Potassium 4.5, Chloride 106, Carbon Dioxide 22, Anion Gap 11.5, BUN 23 H, Creatinine 1.00 D, Estimated Creat Clear 117, Estimated GFR 76, Est GFR ( Amer) 92 D, Glucose 117 H, Calcium 8.4, Magnesium 1.9, Triglycerides 181 H, Cholesterol 133 L, LDL Cholesterol Direct 62.74 L, VLDL Cholesterol 36, HDL Cholesterol 27 L, Cholesterol/HDL Ratio 4.9 H I & O for Last 24 hours: Intake & Output 11/08/23 11/09/23 11/10/23 11/11/23 23:59 23:59 23:59 23:59 Intake Total 473.628 / 499.628 810 / 810 Output Total 2195 / 2255 2450 / 2450 Balance -1721.372 / -1755.372 -1640 / -1640 Weight 110.733 kg 108.153 kg Constitutional Constitutional: no acute distress *Routine HEENT Exam Head: Present normocephalic Eye: Present EOMI and PERRL ENT: Present mucous membranes moist *Routine Neck Exam Neck: Present supple; Absent lymphadenopathy *Routine Respiratory Exam Respiratory: Present CTA bilaterally *Routine Cardiovascular Exam Cardiovascular: Present RRR *Routine Abdominal Exam Abdominal: Present soft and normoactive bowel sounds; Absent tenderness *Routine Extremities Exam Extremities: Absent cyanosis, clubbing or edema *Routine Skin Exam Skin: Present warm; Absent rash *Routine Neurological Exam Neurological: Present alert and oriented X3 Assessment and Plan *Assessment and plan (1) Acute ST elevation myocardial infarction (STEMI) of posterior wall: Status: Acute Category: Medical Code(s): I21.29 - ST elevation (STEMI) myocardial infarction involving other sites (2) Acute hypoxemic respiratory failure: Status: Acute Category: Medical Code(s): J96.01 - Acute respiratory failure with hypoxia (3) Low back pain: Status: Acute Category: Medical Code(s): M54.50 - Low back pain, unspecified (4) Hypertension: Status: Chronic Category: Medical Code(s): I10 - Essential (primary) hypertension (5) Hyperlipemia: Status: Chronic Category: Medical Code(s): E78.5 - Hyperlipidemia, unspecified (6) Coronary artery disease: Status: Chronic Category: Medical Code(s): I25.10 - Atherosclerotic heart disease of [place] coronary artery without angina pectoris (7) Obesity (BMI 30.0-34.9): Status: Acute Category: Medical Code(s): E66.9 - Obesity, unspecified (8) Tobacco use: Status: Acute Category: Social Hx Code(s): Z72.0 - Tobacco use Plan Patient is a 63-year-old male with past medical history of tobacco use, CAD, hypertension hyperlipidemia obesity who presents to the hospital due to chest pain. According to the patient chest pain woke him up from the sleep around 3 AM this morning. It was 10/10 in intensity, nonradiating, associated with deep pressure. On arrival to the emergency department he was diagnosed with a STEMI, cardiology was consulted and patient had cardiac cath performed. Patient had a brief episode of cardiac arrest, did receive 15 seconds of CPR. Patient was placed on aortic balloon pump and was a scheduled for transfer to , facility did not have beds, patient was admitted here for transfer to . Alexander davis is alert awake holding conversations. Assessment STEMI status postcardiac cath Leukocytosis likely reactive CAD Hypertension Hyperlipidemia Obesity Tobacco use Plan Patient is started on aortic balloon pump, patient is a scheduled for transfer to [facility] awaiting bed availability Continue IV heparin Aspirin, Integrilin, pain control, Brilinta Verapamil Resume home atorvastatin, Neurontin DVT prophylaxis-on IV heparin awaiting placement to [facility], potentially transfer today or tomorrow
[2023-11-11] MEDS: MIDAZOLAM HCL 1MG/1ML 5ML VIAL 1 MG IV ×2 (14:39→20:30)
[2023-11-11] MEDS: FENTANYL 100MCG/2ML VIAL 50 MCG IV (14:40)
[2023-11-11] MEDS: LIDOCAINE 1% 10ML MDV 20 ML IJ (14:40)
[2023-11-11] MEDS: diphenhydrAMINE 50MG/ML VIAL 50 MG IV (14:41)
[2023-11-11] MEDS: 0.9 % SODIUM CHLORIDE 500 ML 25 ML IV (14:41)
[2023-11-11] MEDS: HEPARIN 1,000 UNITS/500ML NS (CATH LAB) 3000 UNIT IV ×2 (14:41→20:27)
--- NOTE | 2023-11-11 14:43 | EXP.CARD.CON ---
History of Present Illness History of Present Illness Consult date: 11/11/23 Requesting physician: Aleena Stokes Consult reason: chest pain Chief complaint: chest pain History of present illness: This is a 63-year-old white gentleman who presented to the emergency department with complaints of chest pain. The patient has a past medical history of coronary disease, tobacco use, hypertension, hyperlipidemia and obesity. The patient states that his chest pain woke him up around 3 AM on the morning of admission. He states that he was having a substernal pressure sensation that he rated at 10 out of 10 in intensity. The patient states that the pain did not radiate. It was associated with shortness of breath. The severe pain is why he came to the emergency department. The patient was diagnosed with a STEMI and taken to the cardiac catheterization laboratory. The patient did have brief cardiac arrest during the cardiac catheterization with approximately 10 to 15 seconds of CPR and a dose of epinephrine administered. An intra-aortic balloon pump was placed following his cardiac arrest. The patient had 7 stents and 17 balloons deployed during his left cardiac catheterization. He has the intra-aortic balloon pump still in place. The patient has had bleeding around the balloon pump insertion site since placement. His heparin and Integrilin drips have both been stopped due to the persistent bleeding around the balloon pump site. This morning he denies any chest pain or pressure. He states that he has been having some intermittent episodes of shortness of breath but overall this is improved since undergoing his procedure. He denies any lower extremity edema. He denies any fever, chills, nausea, vomiting, diarrhea, PND orthopnea. He is complaining of back pain from having to lie flat in the bed and being unable to get up and walk around. [facility] Disclaimer: The information contained in this section may have been updated after the patient was seen, as this information can be updated by other users. Medical History (Updated 11/11/23 @ 14:48 by Irene Houston APRN) CAD (coronary artery disease) Diverticulitis HLD (hyperlipidemia) HTN (hypertension) Ischemic cardiomyopathy Myocardial infarct Neck pain On intra-aortic balloon pump assist Surgical History H/O right knee surgery History of hip surgery Hx of colonoscopy Family History (Updated 11/10/23 @ 16:16 by Nevaeh Burrows RN) Other COPD (chronic obstructive pulmonary disease) Cancer Diabetes Heart attack Hyperlipidemia Hypertension Social History (Updated 11/10/23 @ 16:17 by Nevaeh Burrows RN) Smoking Status: Former smoker tobacco type: cigarettes packs per day: 2 alcohol intake: current substance use type: denies use current occupational status: employed Travel in the last 8 weeks: None housing: apartment lives independently: Yes marital status: single number of children: 2 number of grandchildren: 9 caffeine: Yes Review of Systems Review of Systems Review of systems:: pertinent systems reviewed and negative unless documented below Constitutional Constitutional: Reports system reviewed and no additional complaints, except as documented Eyes Eyes: Reports system reviewed and no additional complaints, except as documented ENT Ears, Nose, Mouth, and Throat: Reports system reviewed and no additional complaints, except as documented *Cardiovascular Cardiovascular: Reports system reviewed and no additional complaints, except as documented, Reports chest pain, Reports chest pain at rest, Reports chest pain with activity, Reports dyspnea, Denies palpitations and Denies radiating jaw, neck or arm pain *Respiratory Respiratory: Reports system reviewed and no additional complaints, except as documented and Reports dyspnea *Gastrointestinal Gastrointestinal: Reports system reviewed and no additional complaints, except as documented *Genitourinary Genitourinary: Reports system reviewed and no additional complaints, except as documented *Musculoskeletal Musculoskeletal: Reports system reviewed and no additional complaints, except as documented and Reports back pain Integumentary/Breasts Skin/Breast: Reports system reviewed and no additional complaints, except as documented *Neurologic Neurologic: Reports system reviewed and no additional complaints, except as documented Psychiatric Psychiatric: Reports system reviewed and no additional complaints, except as documented Endocrine Endocrine: Reports system reviewed and no additional complaints, except as documented and Denies palpitations Hematologic/Lymphatic Hematologic/Lymphatic: Reports system reviewed and no additional complaints, except as documented Allergic/Immunologic Allergic/Immunologic: Reports system reviewed and no additional complaints, except as documented Exam Data for Last 24 hours Vital signs and Labs for Last 24 Hours: Temp Pulse Resp BP Pulse Ox O2 Del Method O2 Flow Rate 97.7 F 101 H 19 113/64 98 Nasal Cannula 2 11/11/23 08:58 11/11/23 14:10 11/11/23 14:10 11/11/23 14:10 11/11/23 14:10 11/11/23 13:00 11/11/23 13:00 FiO2 40 11/10/23 15:45 Laboratory Results - last 24 hr 11/10/23 14:50: Blood Type O Negative, Blood Type Confirm O Negative, Antibody Screen Negative, Crossmatch ([facility]) See Detail 11/10/23 18:00: APTT 34.4 H 11/11/23 01:45: ABG O2 Sat (Measured) 70.3 L 11/11/23 04:10: WBC 15.5 H, RBC 3.95 L, Hgb 11.9 L, Hct 34.9 L, MCV 88.5, MCH 30.1, MCHC 34.1, RDW 14.8, Plt Count 282, MPV 8.7, Neut % (Auto) 69.8, Lymph % (Auto) 20.7, [place] % (Auto) 6.8, Eos % (Auto) 2.1, Baso % (Auto) 0.7, Neut # (Auto) 10.8 H, Lymph # (Auto) 3.2, [place] # (Auto) 1.1 H, Eos # (Auto) 0.3, Baso # (Auto) 0.1, Total Counted 100, Neutrophils % (Manual) 76, Lymphocytes % (Manual) 21, Monocytes % (Manual) 2, Basophils % (Manual) 1.0, Platelet Estimate Normal, RBC Morphology Normal 11/11/23 05:41: WBC 16.4 H, RBC 4.12 L, Hgb 12.1 L, Hct 36.7 L, MCV 89.0, MCH 29.4, MCHC 33.1, RDW 15.0, Plt Count 278, MPV 8.9, Neut % (Auto) 72.2, Lymph % (Auto) 18.3, [place] % (Auto) 7.4, Eos % (Auto) 1.7, Baso % (Auto) 0.4, Neut # (Auto) 11.8 H, Lymph # (Auto) 3.0, [place] # (Auto) 1.2 H, Eos # (Auto) 0.3, Baso # (Auto) 0.1, Sodium 135 L, Potassium 4.5, Chloride 106, Carbon Dioxide 22, Anion Gap 11.5, BUN 23 H, Creatinine 1.00 D, Estimated Creat Clear 117, Estimated GFR 76, Est GFR ( Amer) 92 D, Glucose 117 H, Calcium 8.4, Magnesium 1.9, Triglycerides 181 H, Cholesterol 133 L, LDL Cholesterol Direct 62.74 L, VLDL Cholesterol 36, HDL Cholesterol 27 L, Cholesterol/HDL Ratio 4.9 H I & O for Last 24 hours: Intake & Output 11/08/23 11/09/23 11/10/23 11/11/23 23:59 23:59 23:59 23:59 Intake Total 473.628 / 499.628 810 / 810 Output Total 2195 / 2255 2450 / 2450 Balance -1721.372 / -1755.372 -1640 / -1640 Weight 244 lb 2 oz 238 lb 7 oz Constitutional Constitutional: no acute distress and average body habitus *Routine HEENT Exam Head: Present normocephalic and atraumatic ENT: Present mucous membranes moist *Routine Neck Exam Neck: Present supple, full ROM and normal carotid upstroke; Absent JVD, carotid bruit or lymphadenopathy *Routine Respiratory Exam Respiratory: Present CTA bilaterally, normal respiratory effort, able to speak in complete sentences and symmetric chest movement *Routine Cardiovascular Exam Cardiovascular: Present RRR, Normal S1 and Normal S2; Absent murmur or gallop *Routine Abdominal Exam Abdominal: Present soft and normoactive bowel sounds; Absent tenderness, distended or organomegaly *Routine Extremities Exam Extremities: Present full ROM, pulses intact and normal capillary refill; Absent cyanosis, clubbing or edema *Routine Skin Exam Skin: Present intact and warm; Absent erythema *Routine Neurological Exam Neurological: Present alert, oriented X3 and CN II-XII intact; Absent sensory deficit or motor deficit Routine Psychiatric Exam Psychiatric: Present normal affect Meds Home Medications and Allergies Home Medications Medication Instructions Recorded Confirmed Type omeprazole 40 mg capsule,delayed 40 mg PO DAILY Acid Reflux 10/28/21 11/10/23 History release amitriptyline 100 mg tablet 100 mg PO DAILY Mood 11/10/23 11/10/23 History aspirin 81 mg tablet,delayed 81 mg PO DAILY Heart Health 11/10/23 11/10/23 History release atorvastatin 80 mg tablet 80 mg PO DAILY Cholesterol 11/10/23 11/10/23 History empagliflozin 10 mg tablet 10 mg PO DAILY Heart Failure 11/10/23 11/10/23 History (Jardiance) gabapentin 400 mg capsule 400 mg PO TID Pain 11/10/23 11/10/23 History lisinopril 40 mg tablet 40 mg PO DAILY High Blood Pressure 11/10/23 11/10/23 History metoprolol succinate 50 mg 50 mg PO DAILY High Blood Pressure 11/10/23 11/10/23 History tablet,extended release 24 hr oxycodone 15 mg tablet 15 mg PO BIDP PRN Moderate Pain 11/10/23 11/10/23 History (Scale Score 5-6) tamsulosin 0.4 mg capsule 0.4 mg PO DAILY Prostate 11/10/23 11/10/23 History New Prescriptions to Start Prescriptions: Allergies Allergy/AdvReac Type Severity Reaction Status Date / Time No Known Allergies Allergy Verified 04/18/20 11:24 Assessment and Plan *Assessment and plan (1) Acute ST elevation myocardial infarction (STEMI) of posterior wall: Status: Acute Category: Medical Code(s): I21.29 - ST elevation (STEMI) myocardial infarction involving other sites (2) Acute hypoxemic respiratory failure: Status: Acute Category: Medical Code(s): J96.01 - Acute respiratory failure with hypoxia (3) Coronary artery disease: Status: Chronic Qualifiers: Coronary Disease-Associated Artery/Lesion type: [place] artery [place] vs. transplanted heart: [place] heart Associated angina: without angina Qualified Code(s): I25.10 - Atherosclerotic heart disease of [place] coronary artery without angina pectoris Category: Medical Code(s): I25.10 - Atherosclerotic heart disease of [place] coronary artery without angina pectoris (4) Tobacco use: Status: Acute Category: Social Hx Code(s): Z72.0 - Tobacco use (5) Hyperlipemia: Status: Chronic Qualifiers: Hyperlipidemia type: mixed hyperlipidemia Qualified Code(s): E78.2 - Mixed hyperlipidemia Category: Medical Code(s): E78.5 - Hyperlipidemia, unspecified (6) Hypertension: Status: Chronic Qualifiers: Hypertension type: primary hypertension Qualified Code(s): I10 - Essential (primary) hypertension Category: Medical Code(s): I10 - Essential (primary) hypertension (7) Ischemic cardiomyopathy: Status: Acute Category: Medical Code(s): I25.5 - Ischemic cardiomyopathy (8) On intra-aortic balloon pump assist: Status: Acute Category: Medical Code(s): Z98.890 - Other specified postprocedural states Plan Plan: 1. This is a 63-year-old white gentleman who presented to the emergency department complaints of chest pain. The patient was found to have STEMI and taken to the [facility]. The patient had 7 stents and 17 balloons deployed during the procedure. The patient did go into cardiac arrest during the procedure and had about 10 to 15 seconds of CPR and a dose of epinephrine. An intra-aortic balloon pump was placed during the procedure. He remains on dual antiplatelet therapy this morning. 2. His intra-aortic balloon pump is in place but his heparin and Integrilin both have been stopped because the patient has been bleeding around the insertion site of the balloon pump since it has been placed. 3. His limited echocardiogram today estimates his ejection fraction of 40%. Will plan to proceed with right cardiac catheterization today. If his intracardial pressures and cardiac output are within normal range we will stop the balloon pump and repeat his right heart cath 30 minutes later and if his values still remain normal then the intra-aortic balloon pump will be removed today. 4. He is currently awaiting transfer to [facility] but if the balloon pump can be removed and we can cancel transfer at that time. 5. His coronary artery disease is likely stable. He remains on dual antiplatelet therapy with Brilinta and aspirin. 6. His blood pressure is being maintained on a Levophed drip. 7. His LDL goal is less than 55. Will get a liver and lipid panel in the morning. He has been started on a statin. 8. Prior to discharge home the patient will be started on appropriate heart failure medications. But currently during his cardiogenic shock phase we will hold off on beta-blockers and ARB's at this time. 9. Further recommendations will be made pending the patient's response to treatment and the results of his right cardiac catheterization today. Thank you for the opportunity to help participate in the care of this patient. All recommendations and orders are per Dr. Porter.
--- NOTE | 2023-11-11 15:08 | PC.NURSE ---
pt back from flue dust laborer, balloon pump taken out during cath, pt not transferring to anymore, pt has right femoral cath site dressing and right IJ cath site dressing
--- NOTE | 2023-11-11 15:09 | PC.NURSE ---
bp 124/64, held levophed drip at this time
--- NOTE | 2023-11-11 18:17 | ECG_ITS ---
APPROVED REPORT Exam: Resting ECG HR:104 bpm ECG Measurements Heart Rate 104 AXES QRSd 130 QRS 54 QT 333 T 150 QTc 393 Conclusion ATRIAL FIBRILLATION WITH RAPID VENTRICULAR RESPONSE MODERATE INTRAVENTRICULAR CONDUCTION DELAY [110+ ms QRS DURATION] ST DEVIATION AND MODERATE T-WAVE ABNORMALITY, CONSIDER LATERAL ISCHEMIA [-0.1+ mV T-WAVE IN I/aVL/V5/V6] ABNORMAL ECG INTERPRETATION BASED ON A DEFAULT AGE OF 41 YEARS UNCONFIRMED REPORT Electronically signed by : Jeffery Benoit MD 11/12/2023 20:41:30
--- NOTE | 2023-11-11 18:34 | PC.NURSE ---
Addendum entered by Aspen Coto, RN 11/11/23 19:05: stated to stop LR at this time, this RN stopped MIVF Original Note: informed MD Jiménez of episode that pt had where was NSR HR 80's to asystole, pt's eyes rolled back, pt's color changed, and then as soon as staff entered room to check on pt pt's HR went into 140-160's, EKG taken and uploaded, pt had uncontrolled afib then sinus tach with HR 110-130, more than adequate UOP, MD Jiménez stated no new orders at this time, call light within reach
--- NOTE | 2023-11-11 18:42 | PC.NURSE ---
Dr. Jiménez called, informed to call animal laboratory technician team in. pt requested for us to call his son, Eleuterio Mcclellan called per this nurse. pt placed on zoll. bp 148/64, o2-98 on 2LNC.
--- NOTE | 2023-11-11 18:46 | PC.NURSE ---
roselyn Chavez called MD Jiménez as pt had another episode and stated to get ekg and then take pt to chemical laboratory chief
--- NOTE | 2023-11-11 18:47 | ECG_ITS ---
APPROVED REPORT Exam: Resting ECG HR:138 bpm ECG Measurements Heart Rate 138 AXES NV 126 P 29 QRSd 132 QRS 57 QT 294 T 195 QTc 375 Conclusion SINUS TACHYCARDIA INTRAVENTRICULAR CONDUCTION DELAY [130+ ms QRS DURATION] ABNORMAL ECG UNCONFIRMED REPORT Electronically signed by : Jeffery Benoit MD 11/12/2023 20:41:00
--- NOTE | 2023-11-11 18:47 | PC.NURSE ---
laborer [facility] called in
[2023-11-11 19:03] LABS: Chloride 105 mmol/L (98-107); Potassium 4.2 mmoL/L (3.5-5.1); Sodium 137 mmol/L (136-145)
[2023-11-11 19:06] LABS: Anion Gap 14.2 mEq/L (5-15); Blood Urea Nitrogen 16 mg/dl (9-20); Calcium 8.6 mg/dl (8.4-10.2); Carbon Dioxide 22 mmol/L (22.0-30.0); Creatinine Clearance Estimated 117 mL/min (50-200); Estimated Glomerular Filt Rate 86 ml/min (>60); GFR (African American) 103 ML/MIN (>60); Glucose 126 mg/dl (74-100)
--- NOTE | 2023-11-11 19:20 | PC.NURSE ---
Patient off florr. Transferred to [facility].
[2023-11-11 19:42] LABS: Magnesium 1.9 mg/dl (1.6-2.3)
[2023-11-11] MEDS: AMIODARONE HCL 150 MG in DEXTROSE 5 % IN WATER 100 ML 618 MG IV (19:42)
[2023-11-11] MEDS: METOPROLOL TARTRATE 5MG/5ML VIAL 5 MG IV (19:46)
[2023-11-11] MEDS: AMIODARONE HCL 900 MG in DEXTROSE 5 % IN WATER 500 ML 33.2999999999999972 MG IV (19:49)
[2023-11-11] MEDS: LIDOCAINE 1% 5ML PF VIAL 20 ML IJ (20:27)
[2023-11-11] MEDS: FENTANYL 100MCG/2ML VIAL 25 MCG IV (20:28)
--- NOTE | 2023-11-11 20:58 | PC.NURSE ---
pt arrived to floor from shipyard laborer at this time
--- NOTE | 2023-11-11 21:28 | PC.NURSE ---
Addendum entered by Ila Villeda RN 11/12/23 00:22: CORRECTION. AMIO NOT DC AT THIS TIME. Original Note: Patient was sitting on side of bed per request due to slight SOA, conversating with patient when he started to hyperventilate. At that time patient became unresponsive, asystole noted on monitor, and oxygen saturations decreased to low 70s. Theo Guanaco called overhead but before compressions were started patient became responsive. Patient alert and oriented x4. HR ranging from 60-200. Patient maintaining airway on 4LNC above 90%. Dr. Jiménez paged. New orders to dc Amio gtt and to initiate transcutaneous pacing. Orders to maintain HR on Zoll at 70bpm. 8ma administered before capture. Patient tolerating pacing well, requiring no sedation for pain at present. Patient current BP 169/86, HR 121, O2 100% at 4LNC. Patient remains alert and oriented x4.
--- NOTE | 2023-11-11 21:43 | XR_ITS ---
PROCEDURE INFORMATION: Exam: XR Chest Exam date and time: 11/11/2023 10:02 PM Age: 63 years old Clinical indication: Device placement; Cardiac pacemaker lead placement or adjustment; Additional info: Pacer TECHNIQUE: Imaging protocol: Radiologic exam of the chest. Views: 1 view. COMPARISON: CR XR CHEST PORTABLE 11/10/2023 6:48 AM FINDINGS: Tubes, catheters and devices: Right internal jugular approach central catheter in place which appears to extend to the SVC. Extensive apparatus is present over the chest wall which limits study. Lungs: There is extensive pulmonary vascular congestion. Pleural spaces: No large pleural effusion. Heart/Mediastinum: No evidence of mediastinal widening or cardiac silhouette enlargement; the mediastinum and heart appear within normal limits for contour and size. Bones/joints: No evidence of acute osseous abnormalities within the visualized portions of the thoracic spine and ribs. Osseous structures appear appropriate for patient age. IMPRESSION: Stable cardiomegaly and pulmonary vascular congestion.
--- NOTE | 2023-11-11 22:30 | PC.NURSE ---
Patient was sitting in high fowlers in hospital bed when patient yelled out, its happening again. Patient became unresponsive, HR maintained but became bradycardic in 40s, oxygen saturations decreasing to 63% at this time. Code Blue called and CPR initiated. After approx 10 compression patient became responsive with eyes open, moving upper extremities. NRB placed for hyperoxygenation due to cardiac event. Patient able to state name and is alert at present. Dr. Jiménez paged. new orders received to dc AMIO gtt, and to initiate Levophed gtt. Repeat back to physicain with verbal confirmation. Patient resting in semi folwers at present. Zoll with continued transcutaneous pacing and TVPM still in place.
[2023-11-11] MEDS: NOREPINEPHRINE BITARTRATE 8 MG in DEXTROSE 5 % IN WATER 250 ML 1.93999999999999995 MG IV (23:13)
[2023-11-12] VITALS (33 sets, daily range): BP systolic 66–174; BP diastolic 36–92; PULSE 66–141; RESP 12–26; TEMP 36.4–36.9; O2SAT 96–100; BMI 35.3; BMI 33.0
--- NOTE | 2023-11-12 | IR_ITS ---
APPROVED REPORT Patient Location: Inpatient Manager Of Radiology: TREVOR Frazier RT (R) PROCEDURES Endotracheal intubation Placement of intra-aortic balloon pump INDICATION Cardiogenic shock, Ischemic heart disease, Coronary artery disease, Acute respiratory failure, Informed consent was obtained prior to the procedure. COMPLICATIONS None Estimated Blood Loss: Less than 10 ml TECHNIQUE Patient was brought to the Clinical Lab Technologist and placed on the Clinical Lab Technologist table and sterilely prepped. Anesthesia was called for assistance of semielective endotracheal intubation. Anesthesia provided appropriate sedation and then placed an ET tube which was confirmed by fluoroscopic guidance and CO2 exhalation. Following this 1% lidocaine used to size the left groin the left femoral artery was accessed via the Salinger technique. Under fluoroscopic guidance intra-aortic balloon pump was advanced and placed in a one-to-one mode. Patient tolerated the procedure hemodynamically. At the end the procedure patient was transferred to the intensive care unit ventilated and in guarded condition IMPRESSION Successful endotracheal intubation Successful placement of intra-aortic balloon pump PLAN 1. Continue supportive care 2. Plans are being made to transfer patient to [facility] for further treatment Electronically signed by : Jamaal Jiménez MD 11/12/2023 12:38:04
--- NOTE | 2023-11-12 00:43 | PC.NURSE ---
Patient states that he wishes for family to be called in at this time as he feels like it is getting harder to breathe. PLANT NURSERY WORKER notified.
[2023-11-12] MEDS: FUROSEMIDE 40MG/4ML VIAL 40 MG IV ×5 (00:53→16:06)
--- NOTE | 2023-11-12 00:57 | PC.NURSE ---
Eleuterio, patient son, notified that patient requests family at hospital at this time.
[2023-11-12] MEDS: diazePAM 10MG/2ML SYRINGE 2 MG IV (01:08)
--- NOTE | 2023-11-12 01:30 | PC.NURSE ---
Family at bedside with patient
[2023-11-12] MEDS: MORPHINE 2MG/ML SYRINGE 2 MG IV ×2 (02:27→05:11)
--- NOTE | 2023-11-12 04:50 | PC.NURSE ---
Patient called TRN into room and complained of left chest wall pain describing it as a dull throb. Spoke with NANDINI Mcdonald who requests EKG. NANDINI Mcdonald in room while EKG being performed. Unable to obtain accurate EKG reading due to pacing. Async pacing turned off briefly to capture EKG. Patient began hyperventilating, and having similar symptoms as to when he coded prior in shift. Patient became extremely SOA, and bradycardic in the 40s. Pacing on zoll immediately resumed. Patient did not lose consciousness but took him several minutes to recover. Patient remained alert and oriented throughout incident.
--- NOTE | 2023-11-12 06:00 | PC.NURSE ---
TRN at bedside with patient when he voices that he feels it happening again. Patient became lorena in the 40's while being paced and symptomatic. He became extremely SOA, and ashen in skin color. Patient did not lose consciousness. DR. Barger paged, and spoke with him regarding patient condition. New orders to increase pacing bpm to 86. During episode mA increased to 12mA to sustain captured rhythm. NANDINI Mcdonald at bedside. Lungs with coarse crackles throughout. New orders placed per MILLING OPERATOR for 40mg lasix STAT. Dr. Barger also orders lab support tech to be called in immediately along with anesthesia.
[2023-11-12] MEDS: TICAGRELOR 90MG TABLET 180 MG PO (06:15)
[2023-11-12 06:30] LABS: Basophils % 0.3 % (0.1-2.0); Eosinophils # 0.2 K/mm3 (0.0-0.4); Eosinophils % 1.7 % (0.1-12.0); Hematocrit 36.8 % (42.0-52.0); Hemoglobin 12.5 g/dL (14.1-18.0); Lymphocytes # 2.2 K/mm3 (0.7-4.5); Lymphocytes % 16.8 % (10-50); Mean Corpuscular Hemoglobin 30.8 pg (27.0-31.2); Mean Corpuscular Volume 90.7 fl (80-94); Mean Platelet Volume 9.6 fl (7.4-10.4); Monocytes # 0.7 K/mm3 (0.1-1.0); Monocytes % 5.5 % (1.7-9.3); Neutrophils # 9.7 K/mm3 (1.8-7.8); Neutrophils % 75.6 % (37.0-80.0); Platelet Count 125 K/mm3 (142-424); Red Blood Count 4.05 M/mm3 (4.60-6.20); Red Cell Distribution Width 14.8 % (11.5-17.5); White Blood Count 12.8 K/mm3 (4.8-10.8)
[2023-11-12 06:34] LABS: Alanine Aminotransferase 34 U/L (12-78); Albumin Level 3.8 g/dl (3.5-5.0); Alkaline Phosphatase 108 U/L (38-126); Aspartate Amino Transferase 87 U/L (17-59); Bilirubin,Direct 0.1 mg/dl (0.0-0.4); Bilirubin,Indirect 0.7 mg/dL (0.0-0.9); Bilirubin,Total 0.8 mg/dl (0.2-1.3); Bilirubin,Unconjugated 0.7 mg/dL (0.0-1.1); Blood Urea Nitrogen 14 mg/dl (9-20); Calcium 8.8 mg/dl (8.4-10.2); Carbon Dioxide 24 mmol/L (22.0-30.0); Chloride 105 mmol/L (98-107); Chol/HDL Ratio 3.9 (1-3.5); Cholesterol 143 mg/dl (140-200); Creatinine Clearance Estimated 117 mL/min (50-200); Estimated Glomerular Filt Rate 114 ml/min (>60); GFR (African American) 138 ML/MIN (>60); Glucose 128 mg/dl (74-100); HDL Cholesterol 37 mg/dl (40-60); Sodium 133 mmol/L (136-145); Total Protein,Serum 6.8 g/dl (6.3-8.2); Triglycerides 137 mg/dl (30-150); VLDL Cholesterol 27 mg/dL (0-40)
[2023-11-12 06:36] LABS: Magnesium 1.8 mg/dl (1.6-2.3)
--- NOTE | 2023-11-12 06:42 | PC.NURSE ---
Hospitalist notified keno writer / runner that Dr. Jiménez wanted farm labor contractor and anesthesia paged for intubation and balloon pump. Team paged at 0626 Kristine returned call at 0627 Brennen returned call at 0629 Irene returned call at 0631 Malcom returned call at [phone]
[2023-11-12 06:44] LABS: Direct LDL Cholesterol 74.98 mg/dL (100-129)
--- NOTE | 2023-11-12 07:10 | PC.NURSE ---
pt to cheesemaking laborer via stretcher and cheesemaking laborer personnel
[2023-11-12] MEDS: 0.9 % SODIUM CHLORIDE 500 ML 25 ML IV (07:30)
[2023-11-12] MEDS: HEPARIN 1,000 UNITS/500ML NS (CATH LAB) 3000 UNIT IV (07:30)
[2023-11-12] MEDS: LIDOCAINE 1% 10ML MDV 20 ML IJ (07:31)
[2023-11-12] MEDS: HEPARIN 1,000 UNITS/ML 10ML VIAL (CATH LAB) 5000 UNIT IV (08:06)
[2023-11-12] MEDS: VANCOMYCIN HCL 1,000 MG in 0.9 % SODIUM CHLORIDE 250 ML 125 MG IV (08:13)
[2023-11-12] MEDS: HEPARIN SODIUM,PORCINE/D5W 500 ML 20 UNIT IV (08:14)
[2023-11-12] MEDS: AMIODARONE HCL 150 MG in DEXTROSE 5 % IN WATER 100 ML 618 MG IV (08:22)
[2023-11-12] MEDS: VECURONIUM BROM 10MG/10ML VIAL 10 MG IV ×2 (08:28→10:01)
[2023-11-12] MEDS: AMIODARONE HCL 900 MG in DEXTROSE 5 % IN WATER 500 ML 33.2999999999999972 MG IV (08:42)
--- NOTE | 2023-11-12 09:20 | SUR.OPER ---
Bedside report given to Aspen DEMPSEY
--- NOTE | 2023-11-12 09:20 | PC.NURSE ---
PT BACK FROM DIRECTOR SHOPPER MARKETING LAYING FLAT WITH BALLOON PUMP IN LEFT FEMORAL ARTERY, PT HAS PADRON IN PLACE, CLAMPED NGT IN LEFT NARE AT 70CM, 7.5 OETT AT 25CM AT THE LIP, [id number]%, RR 24, TV 440, PEEP 10, BREATH SOUNDS RHONCHI, THICK RED ORAL AND LUNG SECRETIONS, HYPOACTIVE BOWEL SOUNDS, SINUS TACH ON TELE MONITOR 120-140'S, LEVO AT 5MCG/MIN. AMIO AT 1MCG/MIN, PROPOFOL AT 10MCG/MIN, AND HEPARIN DRIP AT 1000UNITS/HR, STARTING FENTANYL DRIP PER MD JOHNS AT BEDSIDE AT 25MCG/HR, FAMILY AT BEDSIDE AND UPDATED BY MD JOHNS, PT ON TRANSFER LIST TO WHEN BED AVAILABLE
[2023-11-12 09:34] LABS: ABG Base Excess -2.9 mmol/L (-2.4-2.3); ABG HCO3 21.6 mmhg (22.0-26.0); ABG Oxygen Saturation 99 % (90-100); ABG PH 7.42 mmol/L (7.35-7.45); ABG PO2 190.7 mmhg (80-100); ABG TCO2 22.6 mmhg (23-27)
--- NOTE | 2023-11-12 09:34 | CA_ITS ---
APPROVED REPORT EXAM: Limited 2D Echocardiogram Cook Fruit: Felicia Lafleur RVT Ht: 5 ft 8 in Wt: 238lbs BSA: 2.20 BP: 120/72 mmHg Indications: POST BALLON PUMP PLACEMENT,STEMI Other Information Study Quality: Fair Conclusion This is a limited TTE to evaluate for LVEF change post IABP discontinuation. Limited windows were obtained. The left ventricle is severely dilated (LVEDV 98 ml/m2). There is normal LV wall thickness. There is moderate to severe reduction in global LV systolic function. The septal, anteroseptal, and inferoseptal LV greenwood appear nearly akinetic. LVEF is 25-30%. Compared to study from 1 day prior (at the time of IABP placement), the LVEF now appears further reduced. Electronically signed by : Stephania Porter MD 11/12/2023 10:13:36
[2023-11-12 09:37] LABS: Allen's Test ACCEPTABLE; Oxygen 100 %; PEEP 10; Source L RADIAL; Tidal Volume 440; Vent Rate 24
--- NOTE | 2023-11-12 09:50 | P.CONS_ITS ---
History of Present Illness History of present illness: Mr. Blair is a 63-year-old with reported history of tobacco abuse, history of hypertension distant presented hospital on 11/10/22 with chest pain close STEMI cardiac arrest and ROSC left heart cath status post stenting, cardiogenic shock status post balloon pump placement plan [facility] for was intubated for airway protection pulmonary was called for further evaluation and management. [facility] Disclaimer: The information contained in this section may have been updated after the patient was seen, as this information can be updated by other users. Medical History (Updated 11/12/23 @ 11:31 by Yovani Reed MD) CAD (coronary artery disease) Diverticulitis HLD (hyperlipidemia) HTN (hypertension) Ischemic cardiomyopathy Myocardial infarct Neck pain On intra-aortic balloon pump assist On mechanically assisted ventilation Surgical History H/O right knee surgery History of hip surgery Hx of colonoscopy Family History (Updated 11/10/23 @ 16:16 by Nevaeh Burrows RN) Other COPD (chronic obstructive pulmonary disease) Cancer Diabetes Heart attack Hyperlipidemia Hypertension Social History (Updated 11/10/23 @ 16:17 by Nevaeh Burrows RN) Smoking Status: Former smoker tobacco type: cigarettes packs per day: 2 alcohol intake: current substance use type: denies use current occupational status: employed Travel in the last 8 weeks: None housing: apartment lives independently: Yes marital status: single number of children: 2 number of grandchildren: 9 caffeine: Yes Review of Systems Review of Systems Review of systems:: unable to obtain Review of systems (narrative): Intubated And Sedated *Neurologic Neurologic: Reports system reviewed and no additional complaints, except as documented Pulmonology Exam Inpatient Vital signs and Labs for Last 24 Hours: Temp Pulse Resp BP Pulse Ox O2 Del Method O2 Flow Rate 97.6 F 66 22 153/82 H 100 Venturi Mask 6 11/12/23 04:00 11/12/23 06:00 11/12/23 06:00 11/12/23 06:00 11/12/23 06:00 11/12/23 06:00 11/12/23 06:00 FiO2 100 11/12/23 07:45 Laboratory Results - last 24 hr 11/11/23 01:45: ABG O2 Sat (Measured) 70.3 L 11/11/23 18:50: Sodium 137, Potassium 4.2, Chloride 105, Carbon Dioxide 22, Anion Gap 14.2, BUN 16 D, Creatinine 0.90, Estimated Creat Clear 117, Estimated GFR 86, Est GFR ( Amer) 103, Glucose 126 H, Calcium 8.6, Magnesium 1.9 11/12/23 06:05: WBC 12.8 H, RBC 4.05 L, Hgb 12.5 L, Hct 36.8 L, MCV 90.7, MCH 30.8, MCHC 34.0, RDW 14.8, Plt Count 125 L D, MPV 9.6, Neut % (Auto) 75.6, Lymph % (Auto) 16.8, [place] % (Auto) 5.5, Eos % (Auto) 1.7, Baso % (Auto) 0.3, Neut # (Auto) 9.7 H, Lymph # (Auto) 2.2, [place] # (Auto) 0.7, Eos # (Auto) 0.2, Baso # (Auto) 0.0, Sodium 133 L, Potassium 4.0, Chloride 105, Carbon Dioxide 24, Anion Gap 8.0, BUN 14, Creatinine 0.70 D, Estimated Creat Clear 117, Estimated GFR 114, Est GFR ( Amer) 138 D, Glucose 128 H, Calcium 8.8, Magnesium 1.8, Total Bilirubin 0.8, Direct Bilirubin 0.1, Conjugated Bilirubin 0.0, Indirect Bilirubin 0.7, Unconjugated Bilirubin 0.7, AST 87 H D, ALT 34, Alkaline Phosphatase 108, Total Protein 6.8, Albumin 3.8, Triglycerides 137, Cholesterol 143, LDL Cholesterol Direct 74.98 L, VLDL Cholesterol 27, HDL Cholesterol 37 L, Cholesterol/HDL Ratio 3.9 H 11/12/23 09:32: Specimen Source L radial, O2 % 100, ABG pH 7.42, ABG pCO2 34.0 L , ABG pO2 190.7 H, ABG HCO3 21.6 L, ABG Total CO2 22.6 L, ABG O2 Saturation 99, ABG Base Excess -2.9 L, Josh Test Acceptable, Vent Rate 24, Tidal Volume 440, PEEP 10 I & O for Labs for Last 24 Hours: Intake & Output 01/06/11/10/23 11/11/23 11/12/23 23:59 23:59 23:59 23:59 Intake Total 473.628 / 499.628 839.283 / 843.283 Output Total 2195 / 2255 4225 / 4225 3600 / 3600 Balance -1721.372 / -1755.372 -3385.717 / -3381.717 -3574 / -3574 Weight 244 lb 2 oz 238 lb 7 oz 238 lb 6.985 oz Constitutional: Present severe distress Comment:: Intubated and Sedated Head: Present normocephalic and atraumatic Neck: Present normal inspection and trachea midline Respiratory: Present patient mechanically ventilated, respiratory distress and rhonchi; Absent prolonged expiratory phase or wheezes Cardiac: Present S1/S2 and Tachycardia GI: Present soft; Absent distention or tenderness Skin: Present intact; Absent cyanosis Neuro: Absent alert, awake or oriented x 3 Comment:: Intubated and sedated Extremities: Present normal inspection; Absent clubbing or cyanosis Psychiatric: Present unable to assess Meds Home Medications and Allergies Home Medications Medication Instructions Recorded Confirmed Type omeprazole 40 mg capsule,delayed 40 mg PO DAILY Acid Reflux 10/28/21 11/10/23 History release amitriptyline 100 mg tablet 100 mg PO DAILY Mood 11/10/23 11/10/23 History aspirin 81 mg tablet,delayed 81 mg PO DAILY Heart Health 11/10/23 11/10/23 History release atorvastatin 80 mg tablet 80 mg PO DAILY Cholesterol 11/10/23 11/10/23 History empagliflozin 10 mg tablet 10 mg PO DAILY Heart Failure 11/10/23 11/10/23 History (Jardiance) gabapentin 400 mg capsule 400 mg PO TID Pain 11/10/23 11/10/23 History lisinopril 40 mg tablet 40 mg PO DAILY High Blood Pressure 11/10/23 11/10/23 History metoprolol succinate 50 mg 50 mg PO DAILY High Blood Pressure 11/10/23 11/10/23 History tablet,extended release 24 hr oxycodone 15 mg tablet 15 mg PO BIDP PRN Moderate Pain 11/10/23 11/10/23 History (Scale Score 5-6) tamsulosin 0.4 mg capsule 0.4 mg PO DAILY Prostate 11/10/23 11/10/23 History New Prescriptions to Start Prescriptions: Allergies Allergy/AdvReac Type Severity Reaction Status Date / Time No Known Allergies Allergy Verified 04/18/20 11:24 Results Laboratory Findings 11/12/23 06:05 11/12/23 06:05 ABG ABG pH 7.42 mmol/L (7.35-7.45) 11/12/23 09:32 ABG pCO2 34.0 mmhg (35.0-45.0) L 11/12/23 09:32 ABG pO2 190.7 mmhg (80-100) H 11/12/23 09:32 ABG O2 Saturation 99 % (90-100) 11/12/23 09:32 PT/INR, D-dimer PT 10.7 seconds (10.1-12.5) 11/10/23 06:50 INR 0.99 (0.9-1.1) 11/10/23 06:50 D-Dimer 0.57 ug/mL (0.0-0.5) H 11/10/23 06:50 Abnormal lab findings: Abnormal Labs 11/10/23 11/10/23 11/10/23 06:50 09:05 11:03 WBC 17.8 H RBC Hgb Hct Plt Count Neut % (Auto) 82.8 H Neut # (Auto) 14.7 H [place] # (Auto) Neutrophils % (Manual) 85 H APTT Activated Clotting Time 245 H* > 400 H* D D-Dimer 0.57 H ABG pCO2 ABG pO2 ABG HCO3 ABG Total CO2 ABG O2 Sat (Measured) ABG Base Excess Sodium BUN 27 H Creatinine 1.30 H Estimated GFR 56 L Glucose 127 H AST Alkaline Phosphatase 129 H Troponin I 0.11 H Globulin 3.4 H Triglycerides Cholesterol LDL Cholesterol Direct HDL Cholesterol Cholesterol/HDL Ratio Crossmatch ([facility]) 11/10/23 11/10/23 11/10/23 12:44 14:25 14:50 WBC 14.0 H RBC 4.46 L Hgb 13.0 L D Hct 40.9 L Plt Count Neut % (Auto) 80.1 H Neut # (Auto) 11.2 H [place] # (Auto) Neutrophils % (Manual) APTT Activated Clotting Time 236 H* D D-Dimer ABG pCO2 ABG pO2 ABG HCO3 ABG Total CO2 ABG O2 Sat (Measured) ABG Base Excess Sodium BUN Creatinine Estimated GFR Glucose AST Alkaline Phosphatase Troponin I Globulin Triglycerides Cholesterol LDL Cholesterol Direct HDL Cholesterol Cholesterol/HDL Ratio Crossmatch ([facility]) See Detail 11/10/23 11/11/23 11/11/23 18:00 01:45 04:10 WBC 15.5 H RBC 3.95 L Hgb 11.9 L Hct 34.9 L Plt Count Neut % (Auto) Neut # (Auto) 10.8 H [place] # (Auto) 1.1 H Neutrophils % (Manual) APTT 34.4 H Activated Clotting Time D-Dimer ABG pCO2 ABG pO2 ABG HCO3 ABG Total CO2 ABG O2 Sat (Measured) 70.3 L ABG Base Excess Sodium BUN Creatinine Estimated GFR Glucose AST Alkaline Phosphatase Troponin I Globulin Triglycerides Cholesterol LDL Cholesterol Direct HDL Cholesterol Cholesterol/HDL Ratio Crossmatch ([facility]) 11/11/23 11/11/23 11/12/23 05:41 18:50 06:05 WBC 16.4 H 12.8 H RBC 4.12 L 4.05 L Hgb 12.1 L 12.5 L Hct 36.7 L 36.8 L Plt Count 125 L D Neut % (Auto) Neut # (Auto) 11.8 H 9.7 H [place] # (Auto) 1.2 H Neutrophils % (Manual) APTT Activated Clotting Time D-Dimer ABG pCO2 ABG pO2 ABG HCO3 ABG Total CO2 ABG O2 Sat (Measured) ABG Base Excess Sodium 135 L 133 L BUN 23 H Creatinine Estimated GFR Glucose 117 H 126 H 128 H AST 87 H D Alkaline Phosphatase Troponin I Globulin Triglycerides 181 H Cholesterol 133 L LDL Cholesterol Direct 62.74 L 74.98 L HDL Cholesterol 27 L 37 L Cholesterol/HDL Ratio 4.9 H 3.9 H Crossmatch ([facility]) 11/12/23 09:32 WBC RBC Hgb Hct Plt Count Neut % (Auto) Neut # (Auto) [place] # (Auto) Neutrophils % (Manual) APTT Activated Clotting Time D-Dimer ABG pCO2 34.0 L ABG pO2 190.7 H ABG HCO3 21.6 L ABG Total CO2 22.6 L ABG O2 Sat (Measured) ABG Base Excess -2.9 L Sodium BUN Creatinine Estimated GFR Glucose AST Alkaline Phosphatase Troponin I Globulin Triglycerides Cholesterol LDL Cholesterol Direct HDL Cholesterol Cholesterol/HDL Ratio Crossmatch ([facility]) Assessment and Plan *Assessment and plan (1) On mechanically assisted ventilation: Status: Acute Category: Medical Code(s): Z99.11 - Dependence on respirator [ventilator] status Plan Much of the history is obtained from chart review. Mr. Blair is a 63-year-old with reported history of tobacco abuse, history of hypertension distant presented hospital on 11/10/22 with chest pain close STEMI cardiac arrest and ROSC left heart cath status post stenting, cardiogenic shock status post balloon pump placement plan [facility] was intubated for airway protection pulmonary was called for further evaluation and management. Chest x-ray postintubation ET tube in place with no dense consolidation/airspace disease noted. Vascular congestion noted. Low volumes in right lung harding likely rotated chest x-ray film Plan: Continue propofol and fentanyl for sedation Continue current ventilator settings, PEEP of 10 FiO2 of 70% tidal volume of 440 and a rate of 18. Will continue to wean FiO2 as tolerated. ABG from this morning did not show any evidence of hypoxic/hypercarbic respiratory failure. Initiate ceftriaxone and doxycycline pending tracheal aspirate culture results. Follow up blood cultures Shock likely cardiogenic, cardiology following. Follow recommendations. - Continue mechanical ventilatory support - Continue AnalgoSedation with Propofol and Fentanyl with CPOT gal less than or euqal to 2 and RASS goal of to 2 (No need for deep sedation) - VAP bundle Recommend elevate head of the bed at 30 to 45 degrees Recommend oral care with chlorhexidne Recommend GI ulcer prophylaxis - Famotidine 20mg IV BID Recommend chemical DVT prophylaxis
[2023-11-12] MEDS: propofoL 100 ML 6.49000000000000021 MG IV (09:51)
[2023-11-12] MEDS: FENTANYL CITRATE/PF 1,000 MCG in 0.9 % SODIUM CHLORIDE 80 ML 1.25 MCG IV (09:51)
--- NOTE | 2023-11-12 10:16 | XR_ITS ---
FINAL REPORT CLINICAL HISTORY: et placement COMPARISON: 1 day prior FINDINGS: The ET tube terminates approximately 3 cm superior to the aashish. An NG tube is seen extending below the diaphragm. The heart size is normal. The mediastinum is within normal limits. There is pulmonary vascular congestion. There are mild opacities. There is no pneumothorax. The bony thorax is intact. IMPRESSION: ET tube terminates 3 cm from the aashish. Pulmonary vascular congestion with mild opacities likely reflecting edema. Reviewed, Interpreted and Dictated by Daniel Aldrich III, MD Transcribed by Usama Arriaga Authenticated and . [facility]
--- NOTE | 2023-11-12 10:23 | PC.NURSE ---
MD TRUJILLO AT BEDSIDE PUSHED 10MG VECURONIUM THROUGH RIGHT IJ SHEATH
[2023-11-12] MEDS: ASPIRIN EC 81MG TABLET 81 MG PO (11:27)
[2023-11-12] MEDS: GABAPENTIN 400MG CAPSULE 400 MG PO ×2 (11:27→14:10)
[2023-11-12] MEDS: DOXYCYCLINE HYCLATE 100 MG in 0.9 % SODIUM CHLORIDE 250 ML 166.667000000000002 MG IV (12:21)
[2023-11-12] MEDS: CEFTRIAXONE SODIUM 1 GM in 0.9 % SODIUM CHLORIDE 50 ML IV (12:21)
[2023-11-12 13:04] LABS: Hematocrit 32.7 % (42.0-52.0)
[2023-11-12 13:31] LABS: Hemoglobin 11.2 g/dL (14.1-18.0)
[2023-11-12] MEDS: propofoL 100 ML 32.4500000000000028 MG IV (13:31)
[2023-11-12 14:51] LABS: PTT Heparin (inpatient only) 35.8 Seconds (23.6-34.0)
[2023-11-12] MEDS: HEPARIN SODIUM,PORCINE/D5W 500 ML 28 UNIT IV (15:03)
[2023-11-12] MEDS: HEPARIN SODIUM 5,000 UNIT/ML VIAL 4000 UNIT IV (15:03)
--- NOTE | 2023-11-12 15:12 | PC.NURSE ---
AMIO GTT DROPPED TO 0.5 MG/MIN AFTER INITIAL 6 HR DOSE
[2023-11-12 15:27] LABS: Alanine Aminotransferase 28 U/L (12-78); Albumin Level 3.1 g/dl (3.5-5.0); Alkaline Phosphatase 111 U/L (38-126); Aspartate Amino Transferase 52 U/L (17-59); Bilirubin,Direct 0.1 mg/dl (0.0-0.4); Bilirubin,Indirect 0.5 mg/dL (0.0-0.9); Bilirubin,Total 0.6 mg/dl (0.2-1.3); Bilirubin,Unconjugated 0.4 mg/dL (0.0-1.1); Total Protein,Serum 5.8 g/dl (6.3-8.2)
[2023-11-12 15:28] LABS: Lactic Acid 1.2 mmol/L (0.7-2.1)
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
[2023-11-12] MEDS: FENTANYL CITRATE/PF 1,000 MCG in 0.9 % SODIUM CHLORIDE 80 ML 7.5 MCG IV (15:46)
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
[2023-11-12 15:57] LABS: Troponin I 4.07 ng/ml (0.00-0.034)
[2023-11-12] MEDS: propofoL 100 ML 25.9600000000000009 MG IV (17:04)
--- NOTE | 2023-11-12 17:42 | PC.NURSE ---
PT TRANSPORTED TO [facility] VIA AMBULANCE WITH RN PRESENT. IABP IN PLACE IN LEFT FEMORAL, 1:1 SETTING. BACKUP HELIUM BROUGHT WITH RN. ON FENTANYL AND PROPOFOL FOR SEDATION, ALSO ON HEPARIN AND AMIO GTTS. VITAL SIGNS STABLE AT TIME OF TRANSFER.
--- NOTE | 2023-11-12 21:27 | PC.NURSE ---
WASTED 71ML OF FENTANYL GTT WITH Jose CARRERA RN.
== END 2023-11-12 17:50 | disposition short-term general hospital (02) | DRG 270 ==
LOC: ER 07:18 → CATHLAB 07:26 → 2ND 08:38 → CATHLAB 09:46 → 2ND 13:03
PROVIDERS: Internal Medicine; Internal Medicine Cardiovascular Disease; Nurse Practitioner Family; Admitting Provider Internal Medicine; Emergency Provider Emergency Medicine; PCP Emergency Medicine; Visit Provider Internal Medicine
PROC: 5A02210 Assistance with Cardiac Output using Balloon Pump, Continuous (ICD-10-PCS; principal; 2023-11-10 07:10)
PROC: 4A023N6 Measurement of Cardiac Sampling and Pressure, Right Heart, Percutaneous Approach (ICD-10-PCS; principal; 2023-11-11 13:30)
DX: I21.29 ST elevation (STEMI) myocardial infarction involving other sites (principal); I46.9 Cardiac arrest, cause unspecified; J96.01 Acute respiratory failure with hypoxia; R57.0 Cardiogenic shock; I50.21 Acute systolic (congestive) heart failure; I25.82 Chronic total occlusion of coronary artery; I25.10 Atherosclerotic heart disease of native coronary artery without angina pectoris; E78.5 Hyperlipidemia, unspecified; E66.9 Obesity, unspecified; Z68.33 Body mass index [BMI] 33.0-33.9, adult; I25.2 Old myocardial infarction; Z87.891 Personal history of nicotine dependence; I25.5 Ischemic cardiomyopathy; I10 Essential (primary) hypertension; I48.91 Unspecified atrial fibrillation
CPT/HCPCS: 31500; 94002; 33210; 33967; 36415; 71045; 80048; 80053; 80061; 80076; 81001; 82803; 82810; 83605; 83735; 84484; 85007; 85014; 85018; 85025; 85347; 85378; 85610; 85730; 86850; 87040; 87070; 87205; 92929; 92941; 92972; 92978; 93005; 93306; 93308; 93451; 93454; 93926; 93971; 94660; 94760; 99152; 99153; 99291; C1725; C1760; C1761; C1769; C1876; C1887; C1894; C9601; C9606; J0282; J0330; J0696; J1327; J1644; J1756; J2405; J2704; J3370; J3475; J7060; Q9967